=== PATIENT | female | born 1985 | race Caucasian/White ===

== ENCOUNTER 2020-10-19 09:32 | Emergency (ER) | payer SELFPAY ==
[2020-10-19] MEDS ORDERED: NA CHLORIDE 0.9% 1,000 ML ONE (10:20)
[2020-10-19] MEDS ORDERED: ACETAMINOPHEN 500 MG TAB ONE (10:20)
[2020-10-19 10:29] LABS: Absolute Lymphocytes (CBC) 2.3 K/uL (0.7-4.9); Basophils % 0.5 % (0-1.3); Hematocrit 44.3 % (36.0-45.0); Lymphocytes % 15.6 % (15.3-44.8); MPV 8.7 fL (7.6-11.3)
[2020-10-19 10:30] LABS: Protime INR 1.06
[2020-10-19 10:53] LABS: Potassium 3.9 mmol/L (3.5-5.1)
--- NOTE | 2020-10-19 11:13 | RAD REPORT ---
EXAM DESCRIPTION: USExtrem Venous W Compress Bil10/19/2020 10:53 am CLINICAL HISTORY: Leg pain COMPARISON: none FINDINGS: The common femoral, superficial femoral, popliteal and posterior tibial veins bilaterally are compressible and demonstrate augmentation. Doppler demonstrates good flow. IMPRESSION: No evidence of deep venous thrombosis involving either lower extremity.
[2020-10-19 11:30] LABS: Urine Blood 3+ (NEG); Urine Glucose NEGATIVE (NEG); Urine Protein 3+ (NEG); Urine Specific Gravity >1.030 (1.005-1.030); Urine pH 5.5 (5.0-7.0)
--- NOTE | 2020-10-19 11:37 | ER ---
Nurse's Notes [facility] Name: Sherry White Age: 35 yrs Sex: Female : 1985 Arrival Date: 10/19/2020 Time: 09:33 Bed 18 Private MD: Diagnosis: Pain in left leg;Pain in right leg Presentation: 10/19 09:34 Chief complaint: EMS states: pt found aox4 sitting outside with c/o of fatigue and zb weakness. She walked from a friends house this morning and started to feel cramping and fatigue in her legs. Coronavirus screen: congestion, fatigue, muscle pain, runny nose. Ebola Screen: No symptoms or risks identified at this time. Initial Sepsis Screen: Does the patient meet any 2 criteria? No. Patient's initial sepsis screen is negative. Does the patient have a suspected source of infection? No. Patient's initial sepsis screen is negative. Risk Assessment: Do you want to hurt yourself or someone else? Patient reports no desire to harm self or others. Onset of symptoms was October 18, 2020. 09:34 Method Of Arrival: EMS: [facility] zb 09:34 Acuity: ROXY 3 zb Triage Assessment: 09:30 Musculoskeletal: Circulation, motion, and sensation intact. Capillary refill < 3 zb seconds, in bilateral fingers. Range of motion: intact in all extremities. 09:43 General: Appears in no apparent distress. comfortable, Behavior is cooperative, zb anxious, fussy. Pain: Complains of pain in left leg and right leg Pain does not radiate. Pain currently is 1 out of 10 on a pain scale. Quality of pain is described as aching, Pain began 1 day ago. Is continuous, Aggravated by increased activity. EENT: Reports nasal congestion since yesterday. Neuro: Level of Consciousness is awake, alert, obeys commands, Oriented to person, place, time, situation. Cardiovascular: Reports fatigue, Capillary refill < 3 seconds in bilateral fingers Patient's skin is warm and dry. Pulses are all present. Respiratory: Reports cough that is Airway is patent Respiratory effort is even, unlabored, Respiratory pattern is regular, symmetrical. GI: Abdomen is flat, non-distended, Patient currently denies diarrhea, nausea, vomiting. : No signs and/or symptoms were reported regarding the genitourinary system. Derm: Skin is intact, is healthy with good turgor, Skin is pink, warm \T\ dry. normal. 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 - Social history:: Smoking status: Patient reports the use of cigarette tobacco products, smokes one pack cigarettes per day. Screenin:50 Abuse screen: Denies threats or abuse. Denies injuries from another. Nutritional zb screening: No deficits noted. Tuberculosis screening: No symptoms or risk factors identified. Fall Risk None identified. Assessment: 10:15 Reassessment: Patient appears in no apparent distress at this time. Patient and/or zb family updated on plan of care and expected duration. Pain level reassessed. Patient is alert, oriented x 3, equal unlabored respirations, skin warm/dry/pink. pt lying ing bed. 11:15 Reassessment: Patient appears in no apparent distress at this time. Patient and/or zb family updated on plan of care and expected duration. Pain level reassessed. Patient is alert, oriented x 3, equal unlabored respirations, skin warm/dry/pink. pain decreased. fluid completed. ECP discussed DC. 12:00 Reassessment: Patient appears in no apparent distress at this time. Patient and/or zb family updated on plan of care and expected duration. Pain level reassessed. Patient is alert, oriented x 3, equal unlabored respirations, skin warm/dry/pink. pt ambulatory. walked out of ER. gait stable. no c/o of pain. Vital Signs: 09:34 BP 119 / 74; Pulse 93; Resp 16; Temp 99.1(O); Pulse Ox 98% on R/A; Weight 72.57 kg; zb Height 5 ft. 9 in. (175.26 cm); Pain 1/10; 10:49 BP 134 / 89; Pulse 57; Resp 16; Pulse Ox 100% on R/A; zb 11:51 BP 135 / 90; Pulse 60; Resp 18; Pulse Ox 100% on R/A; zb 09:34 Body Mass Index 23.63 (72.57 kg, 175.26 cm) zb ED Course: 09:33 Patient arrived in ED. zb 09:34 Pete Ladd PA is PHCP. cp 09:34 Sathish Allison MD is Attending Physician. cp 09:34 India Veliz RN is Primary Nurse. zb 09:41 Triage completed. zb 09:50 Patient has correct armband on for positive identification. Call light in reach. Side zb rails up X 1. Pulse ox on. NIBP on. Door closed. Noise minimized. Warm blanket given. 09:50 Arm band placed on. zb 10:19 EKG done, by ED staff, reviewed by Pete MARSHALL. jd3 10:53 US Extremity Venous W Compression Brain In Process Unspecified. EDMS 11:49 Urine Culture Sent. sv 12:08 No provider procedures requiring assistance completed. IV discontinued, intact, zb bleeding controlled, No redness/swelling at site. Pressure dressing applied. Administered Medications: 10:30 Drug: NS 0.9% 1000 ml Route: IV; Rate: 1 bolus; Site: right antecubital; zb 11:49 Follow up: Response: No adverse reaction; IV Status: Completed infusion; IV Intake: zb 1000ml 10:30 Drug: Tylenol 1000 mg Route: PO; zb 11:48 Follow up: Response: No adverse reaction; Pain is decreased zb Intake: 11:49 IV: 1000ml; Total: 1000ml. zb Outcome: 11:37 Discharge ordered by MD. cp 12:09 Discharged to home ambulatory. zb 12:09 Condition: stable 12:09 Discharge instructions given to patient, Instructed on discharge instructions, follow up and referral plans. medication usage, Demonstrated understanding of instructions, follow-up care, medications, Prescriptions given X 1. 12:09 Patient left the ED. zb Signatures: Dispatcher [employer] EDSabine Wagner RN RN sv Page, Corey, PA PA cp Davies, Jonathon, RN RN jd3 Brown, Zipporah, RN RN zb
--- NOTE | 2020-10-19 11:37 | EDPHYS ---
Physician Documentation [facility] Name: Sherry White Age: 35 yrs Sex: Female : 1985 Arrival Date: 10/19/2020 Time: 09:33 Bed 18 Private MD: ED Physician Sathish Allison HPI: 10/19 09:40 This 35 yrs old Female presents to ER via EMS with complaints of Bilateral Leg Pain and cp General Weakness. 09:40 The patient presents with pain, that is acute. The complaints affect the right leg and cp left leg. Onset: The symptoms/episode began/occurred today. 09:40 Patient reports pain to bilateral legs that started today while walking from friend's cp home after spending the night. Patient c/o general weakness. 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 - Social history:: Smoking status: Patient reports the use of cigarette tobacco products, smokes one pack cigarettes per day. ROS: 09:50 Constitutional: Negative for body aches, chills, fever, poor PO intake. cp 09:50 Eyes: Negative for injury, pain, redness, and discharge. cp 09:50 ENT: Negative for ear pain, sore throat, difficulty swallowing, difficulty handling secretions. 09:50 Cardiovascular: Negative for chest pain, edema, palpitations. 09:50 Respiratory: Negative for cough, shortness of breath, wheezing. 09:50 Abdomen/GI: Negative for abdominal pain, nausea, vomiting, and diarrhea, black/tarry stool, rectal bleeding. 09:50 Back: Negative for pain at rest, pain with movement. 09:50 : Negative for urinary symptoms. 09:50 Skin: Negative for rash. 09:50 Neuro: Positive for weakness, Negative for altered mental status, dizziness, headache, loss of consciousness, syncope. 09:50 All other systems are negative. Exam: 09:55 Constitutional: The patient appears in no acute distress, alert, awake, cp non-diaphoretic, non-toxic, well developed, well nourished. 09:55 Head/Face: Normocephalic, atraumatic. cp 09:55 Eyes: Periorbital structures: appear normal, Pupils: equal, round, and reactive to light and accomodation, Extraocular movements: intact throughout, Conjunctiva: normal, no exudate, no injection, Sclera: no appreciated abnormality, Lids and lashes: appear normal, bilaterally. 09:55 ENT: External ear(s): are unremarkable, Nose: is normal, Mouth: Lips: moist, Oral mucosa: moist, Posterior pharynx: is normal, airway is patent, no erythema, no exudate. 09:55 Neck: ROM/movement: is normal, is supple, without pain, no range of motions limitations. 09:55 Chest/axilla: Inspection: normal. 09:55 Cardiovascular: Rate: normal, Rhythm: regular, Heart sounds: murmur, not appreciated, Edema: is not appreciated. 09:55 Respiratory: the patient does not display signs of respiratory distress, Respirations: normal, no use of accessory muscles, no retractions, labored breathing, is not present, Breath sounds: are clear throughout, no decreased breath sounds, no stridor, no wheezing. 09:55 Abdomen/GI: Exam negative for discomfort, distension, guarding, Inspection: abdomen appears normal. 09:55 Back: pain, is absent, ROM is normal. 09:55 Musculoskeletal/extremity: Extremities: grossly normal except: noted in the right leg and left leg: pain. 09:55 Neuro: Orientation: to person, place \T\ time. Mentation: is normal, Cerebellar function: is grossly normal, Motor: moves all fours, strength is normal, Sensation: is normal. 10:10 ECG was reviewed by the Attending Physician. cp Vital Signs: 09:34 BP 119 / 74; Pulse 93; Resp 16; Temp 99.1(O); Pulse Ox 98% on R/A; Weight 72.57 kg; zb Height 5 ft. 9 in. (175.26 cm); Pain 1/10; 10:49 BP 134 / 89; Pulse 57; Resp 16; Pulse Ox 100% on R/A; zb 11:51 BP 135 / 90; Pulse 60; Resp 18; Pulse Ox 100% on R/A; zb 09:34 Body Mass Index 23.63 (72.57 kg, 175.26 cm) zb MDM: 09:36 Patient medically screened. 11:35 Data reviewed: vital signs, nurses notes, lab test result(s), EKG, radiologic studies, cp ultrasound, and as a result, I will discharge patient. 11:35 Test interpretation: by ED physician or midlevel provider: ECG. Counseling: I had a cp detailed discussion with the patient and/or guardian regarding: the historical points, exam findings, and any diagnostic results supporting the discharge/admit diagnosis, lab results, radiology results, to return to the emergency department if symptoms worsen or persist or if there are any questions or concerns that arise at home. Response to treatment: the patient's symptoms have mildly improved after treatment. 10/19 09:36 Order name: Basic Metabolic Panel; Complete Time: 11:08 10/19 11:08 Interpretation: Normal except: CL 108; GFR 87. 10/19 09:36 Order name: CBC with Diff; Complete Time: 11:08 10/19 11:09 Interpretation: Normal except: WBC 14.6; HGB 15.1; JESSA% 76.8; NEUT A 11.2. 10/19 09:36 Order name: Magnesium; Complete Time: 11:08 10/19 09:36 Order name: PT-INR; Complete Time: 11:08 10/19 09:36 Order name: CK; Complete Time: 11:08 10/19 11:09 Interpretation: Within normal limits: CPK 148. 10/19 09:36 Order name: Urine Microscopic Only 10/19 09:36 Order name: EKG; Complete Time: 09:37 10/19 09:36 Order name: Cardiac monitoring; Complete Time: 10:17 10/19 09:41 Order name: US Extremity Venous W Compression Brain; Complete Time: 11:34 10/19 11:34 Interpretation: Report reviewed. 10/19 11:06 Order name: Urine Dipstick--Ancillary (enter results); Complete Time: 11:34 10/19 11:34 Interpretation: Normal except: UBLD 3+; UPROT 3+. 10/19 11:06 Order name: Urine --Ancillary (enter results); Complete Time: 11:34 10/19 09:36 Order name: EKG - Nurse/Tech; Complete Time: 10:17 cp 10/19 09:36 Order name: IV Saline Lock; Complete Time: 10:19 cp 10/19 09:36 Order name: Labs collected and sent; Complete Time: 10:19 cp 10/19 09:36 Order name: O2 Per Protocol; Complete Time: 10:17 cp 10/19 09:36 Order name: O2 Sat Monitoring; Complete Time: 10:17 cp 10/19 09:36 Order name: Urine Dipstick-Ancillary (obtain specimen); Complete Time: 11:27 cp EC:10 Rate is 69 beats/min. Rhythm is regular. PA interval is normal. QRS interval is normal. cp QT interval is normal. T waves are Inverted in lead aVR. Interpreted by me. Reviewed by me. Administered Medications: 10:30 Drug: NS 0.9% 1000 ml Route: IV; Rate: 1 bolus; Site: right antecubital; zb 11:49 Follow up: Response: No adverse reaction; IV Status: Completed infusion; IV Intake: zb 1000ml 10:30 Drug: Tylenol 1000 mg Route: PO; zb 11:48 Follow up: Response: No adverse reaction; Pain is decreased zb Disposition: 10/20 06:26 Co-signature as Attending Physician, Sathish Allison MD I agree with the assessment and kdr plan of care. Disposition: 10/19/20 11:37 Discharged to Home. Impression: Pain in left leg, Pain in right leg. - Condition is Stable. - Discharge Instructions: Musculoskeletal Pain. - Prescriptions for Ibuprofen 800 mg Oral Tablet - take 1 tablet by ORAL route every 8 hours As needed take with food; 30 tablet. - Medication Reconciliation Form, Thank You Letter, Antibiotic Education, Prescription Opioid Use form. - Follow up: Private Physician; When: 2 - 3 days; Reason: Worsening of condition. - Problem is new. - Symptoms have improved. Signatures: Dispatcher [employer] EDMS Sathish Allison MD MD kdr Page, Corey, PA PA cp Brown, Zipporah, RN RN zb Corrections: (The following items were deleted from the chart) 10/19 11:09 11:09 Normal except: WBC 14.6; HGB 15.1. cp cp 12: 11:37 10/19/2020 11:37 Discharged to Home. Impression: Pain in left leg; Pain in right zb leg. Condition is Stable. Forms are Medication Reconciliation Form, Thank You Letter, Antibiotic Education, Prescription Opioid Use. Follow up: Private Physician; When: 2 - 3 days; Reason: Worsening of condition. Problem is new. Symptoms have improved. cp
[2020-10-19 11:39] LABS: Urine Bacteria 20-50 /HPF (<20); Urine RBC LOADED /HPF (NONE SEEN)
[2020-10-20 07:38] VITALS: TEMP 99.1
[2020-10-20 07:40] VITALS: O2SAT 100
[2020-10-20 07:41] VITALS: BP 135/90
== END 2020-10-19 12:09 | disposition home or self-care (01) ==
LOC: ER 09:32
DX: M79.605 Pain in left leg (principal); M79.604 Pain in right leg; F17.210 Nicotine dependence, cigarettes, uncomplicated; Z88.5 Allergy status to narcotic agent
CPT/HCPCS: 36415; 80048; 81003; 81015; 81025; 82550; 83735; 85025; 85610; 93005; 93970; 96360; 99284; J7030

== ENCOUNTER 2020-10-19 14:42 | Emergency (ER) | payer SELFPAY ==
--- NOTE | 2020-10-19 17:50 | RAD REPORT ---
EXAM DESCRIPTION: CT - Head Brain Wo Cont - 10/19/2020 5:20 pm CLINICAL HISTORY: DIZZINESS, syncope COMPARISON: No comparisons TECHNIQUE: Axial 5 mm thick images of the head were obtained without IV contrast. All CT scans are performed using dose optimization technique as appropriate and may include automated exposure control or mA/KV adjustment according to patient size. FINDINGS: No intracranial hemorrhage, mass, edema or shift of mid-line structures. No acute infarcti on changes seen. No abnormal extra-axial fluid collections. Ventricles are normal. physiologic calcif ications are present. Mastoid air cells and visualized portions of the paranasal sinuses are clear. No acute bony findings. IMPRESSION: Negative non-contrast CT head examination.
--- NOTE | 2020-10-19 17:53 | EDPHYS ---
Physician Documentation [facility] Name: Sherry White Age: 35 yrs Sex: Female : 1985 Arrival Date: 10/19/2020 Time: 14:44 Bed 23 Private MD: ED Physician Sathish Allison HPI: 10/19 15:28 This 35 yrs old Female presents to ER via Ambulatory with complaints of kb Weakness. 15:57 The patient has experienced near-syncope, felt faint. Onset: The symptoms/episode kb began/occurred just prior to arrival. Duration: The patient has had multiple episodes. Context: occurred outdoors, occurred while the patient was walking, Just prior to the episode the patient experienced no apparent symptoms. Associated injury: The patient did not suffer any apparent associated injury. Associated signs and symptoms: Pertinent positives: lightheadedness. Current symptoms: Currently, the patient is not experiencing any symptoms. The patient has not experienced similar symptoms in the past. The patient has been recently seen at the [facility] Emergency Department, today, for similar complaints labs were performed, an ultrasound was performed. Pt states she came in this morning because she was walking and felt faint, like she was going to pass out. States they did tests on her and said everything was ok so she was able to leave. States she had to come back because she got that faint feeling again.. 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 - Social history:: Smoking status: Patient reports the use of cigarette tobacco products, smokes one pack cigarettes per day. ROS: 15:57 Constitutional: Negative for fever, chills, and weight loss, Cardiovascular: Negative kb for chest pain, palpitations, and edema, Respiratory: Negative for shortness of breath, cough, wheezing, and pleuritic chest pain, Abdomen/GI: Negative for abdominal pain, nausea, vomiting, diarrhea, and constipation, Back: Negative for injury and pain, MS/Extremity: Negative for injury and deformity, Skin: Negative for injury, rash, and discoloration. 15:57 Neuro: Positive for near syncope. Exam: 15:56 Constitutional: This is a well developed, well nourished patient who is awake, alert, kb and in no acute distress. Head/Face: Normocephalic, atraumatic. Eyes: Pupils equal round and reactive to light, extra-ocular motions intact. Lids and lashes normal. Conjunctiva and sclera are non-icteric and not injected. Cornea within normal limits. Periorbital areas with no swelling, redness, or edema. Chest/axilla: Normal chest wall appearance and motion. Nontender with no deformity. No lesions are appreciated. Cardiovascular: Regular rate and rhythm with a normal S1 and S2. No gallops, murmurs, or rubs. Normal PMI, no JVD. No pulse deficits. Respiratory: Lungs have equal breath sounds bilaterally, clear to auscultation and percussion. No rales, rhonchi or wheezes noted. No increased work of breathing, no retractions or nasal flaring. Abdomen/GI: Soft, non-tender, with normal bowel sounds. No distension or tympany. No guarding or rebound. No evidence of tenderness throughout. Skin: Warm, dry with normal turgor. Normal color with no rashes, no lesions, and no evidence of cellulitis. MS/ Extremity: Pulses equal, no cyanosis. Neurovascular intact. Full, normal range of motion. Neuro: Awake and alert, GCS 15, oriented to person, place, time, and situation. Cranial nerves II-XII grossly intact. Motor strength 5/5 in all extremities. Sensory grossly intact. Cerebellar exam normal. Normal gait. Vital Signs: 14:52 BP 122 / 82; Pulse 76; Resp 16; Temp 97.6; Pulse Ox 98% ; Weight 73.94 kg; Height 5 ft. iw 9 in. (175.26 cm); 17:03 BP 111 / 50 Supine; Pulse 61; iw 17:06 BP 110 / 75 Sitting; Pulse 67; iw 17:07 BP 113 / 78 Standing; Pulse 68; iw 14:52 Body Mass Index 24.07 (73.94 kg, 175.26 cm) iw MDM: 15:28 Patient medically screened. kb 15:29 Data reviewed: vital signs, nurses notes. Data interpreted: Pulse oximetry: on room air kb is 98 %. Interpretation: normal. 17:39 Data reviewed: old medical records, labs from this morning's visit reviewed. kb Counseling: I had a detailed discussion with the patient and/or guardian regarding: the historical points, exam findings, and any diagnostic results supporting the discharge/admit diagnosis, lab results, radiology results, the need for outpatient follow up, a family practitioner. 10/19 17:12 Order name: Glucose, Ancillary Testing; Complete Time: 17:16 EDMS 10/19 17:10 Order name: CT Head Brain wo Cont; Complete Time: 17:52 kb 10/19 16:18 Order name: Blood Glucose Level; Complete Time: 17:00 kb 10/19 16:19 Order name: Orthostatics; Complete Time: 17:07 kb Administered Medications: No medications were administered Point of Care Testing: Blood Glucose: 17:00 Blood Glucose: 88 mg/dL; iw Ranges: Critical Glucose Levels:Adult <50 mg/dl or >400 mg/dl <40 mg/dl or >180 mg/dl Disposition: 10/20 06:32 Co-signature as Attending Physician, Sathish Allison MD I agree with the assessment and kdr plan of care. Disposition: 10/19/20 17:52 Discharged to Home. Impression: Dizziness and giddiness. - Condition is Stable. - Discharge Instructions: Near-Syncope, [id number], Dizziness, [id number]. - Medication Reconciliation Form, Thank You Letter, Antibiotic Education, Prescription Opioid Use form. - Follow up: Emergency Department; When: As needed; Reason: Worsening of condition. Follow up: Private Physician; When: 2 - 3 days; Reason: Recheck today's complaints, Continuance of care, Re-evaluation by your physician. Signatures: Dispatcher [employer] EDNH Sherry York, PRINTING SIGN MACHINE OPERATOR-C LUIS CARLOS-Sathish Beasley MD MD kdr Siena Devi RN RN iw Corrections: (The following items were deleted from the chart) 10/19 17:59 17:52 10/19/2020 17:52 Discharged to Home. Impression: Dizziness and giddiness. iw Condition is Stable. Forms are Medication Reconciliation Form, Thank You Letter, Antibiotic Education, Prescription Opioid Use. Follow up: Emergency Department; When: As needed; Reason: Worsening of condition. Follow up: Private Physician; When: 2 - 3 days; Reason: Recheck today's complaints, Continuance of care, Re-evaluation by your physician. kb
--- NOTE | 2020-10-19 17:53 | ER ---
Nurse's Notes [facility] Name: Sherry White Age: 35 yrs Sex: Female : 1985 Arrival Date: 10/19/2020 Time: 14:44 Bed 23 Private MD: Diagnosis: Dizziness and giddiness Presentation: 10/19 14:52 Chief complaint: Patient states: almost passed out today. was seen in ER and discharged iw home, started to feel dizzy and a little faint and came back. Coronavirus screen: At this time, the client does not indicate any symptoms associated with coronavirus-19. Ebola Screen: Patient negative for fever greater than or equal to 101.5 degrees Fahrenheit, and additional compatible Ebola Virus Disease symptoms Patient denies exposure to infectious person. Patient denies travel to an Ebola-affected area in the 21 days before illness onset. No symptoms or risks identified at this time. Initial Sepsis Screen: Does the patient meet any 2 criteria? No. Patient's initial sepsis screen is negative. Does the patient have a suspected source of infection? No. Patient's initial sepsis screen is negative. Risk Assessment: Do you want to hurt yourself or someone else? Patient reports no desire to harm self or others. Onset of symptoms was October 19, 2020. 14:52 Method Of Arrival: Ambulatory iw 14:52 Acuity: ROXY 3 iw Triage Assessment: 17:59 General: Behavior is calm. 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 - Social history:: Smoking status: Patient reports the use of cigarette tobacco products, smokes one pack cigarettes per day. Screenin:06 Abuse screen: Denies threats or abuse. Denies injuries from another. Nutritional iw screening: No deficits noted. Tuberculosis screening: No symptoms or risk factors identified. Fall Risk None identified. Assessment: 15:00 Reassessment: pt told registration that she was going to go outside for a minute. iw 15:38 Reassessment: Patient appears in no apparent distress at this time. Patient is alert, iw oriented x 3, equal unlabored respirations, skin warm/dry/pink. pt back in lobby. 16:00 General: Appears in no apparent distress. Pain: Denies pain. Neuro: Level of iw Consciousness is awake, alert, obeys commands, Oriented to person, place, time, situation. 17:00 Reassessment: Patient appears in no apparent distress at this time. Patient and/or iw family updated on plan of care and expected duration. Pain level reassessed. Patient is alert, oriented x 3, equal unlabored respirations, skin warm/dry/pink. 17:59 Reassessment: Patient appears in no apparent distress at this time. Patient and/or iw family updated on plan of care and expected duration. Pain level reassessed. Patient is alert, oriented x 3, equal unlabored respirations, skin warm/dry/pink. Patient states feeling better. Patient states symptoms have improved. Vital Signs: 14:52 BP 122 / 82; Pulse 76; Resp 16; Temp 97.6; Pulse Ox 98% ; Weight 73.94 kg; Height 5 ft. iw 9 in. (175.26 cm); 17:03 BP 111 / 50 Supine; Pulse 61; iw 17:06 BP 110 / 75 Sitting; Pulse 67; iw 17:07 BP 113 / 78 Standing; Pulse 68; iw 14:52 Body Mass Index 24.07 (73.94 kg, 175.26 cm) iw ED Course: 14:44 Patient arrived in ED. rg4 14:53 Triage completed. iw 15:28 Sher[facility] York FNP-C [facility]. kb 15:28 Sathish Allison MD is Attending Physician. kb 15:40 Arm band placed on. iw 17:02 Siena Devi, ESTEPHANIE is Primary Nurse. iw 17:06 Patient has correct armband on for positive identification. iw 17:20 CT Head Brain wo Cont In Process Unspecified. EDMS 17:22 Patient moved back from CT. sv 17:59 No provider procedures requiring assistance completed. Patient did not have IV access iw during this emergency room visit. Administered Medications: No medications were administered Point of Care Testing: Blood Glucose: 17:00 Blood Glucose: 88 mg/dL; iw Ranges: Outcome: 17:52 Discharge ordered by . kb 17:59 Discharged to home ambulatory. iw 17:59 Condition: good 17:59 Discharge instructions given to patient, Instructed on discharge instructions, follow up and referral plans. Demonstrated understanding of instructions, follow-up care. 17:59 Patient left the ED. iw Signatures: Dispatcher [employer] EDSherry El, JOURNEYMAN SHEET METAL WORKER-C JOURNEYMAN SHEET METAL WORKER-Sabine Mena, RN Siena Oliver RN RN iw Garcia, Rubi rg4 Corrections: (The following items were deleted from the chart) 14:54 14:52 Resp 16bpm; Temp 97.6F; 73.94 kg; Height 5 ft. 9 in.; BMI: 24.0; iw iw
[2020-10-20 10:22] VITALS: TEMP 97.6; O2SAT 98
[2020-10-20 10:25] VITALS: BP 113/78
== END 2020-10-19 17:59 | disposition home or self-care (01) ==
LOC: ER 14:42
DX: R42 Dizziness and giddiness (principal); F17.210 Nicotine dependence, cigarettes, uncomplicated; Z88.5 Allergy status to narcotic agent
CPT/HCPCS: 70450; 82947; 99284

== ENCOUNTER 2021-03-15 20:29 | Inpatient (IN) | payer SELFPAY ==
[2021-03-15] MEDS ORDERED: LORazepam 2 MG/ML VIAL ONE (21:02)
[2021-03-15] MEDS ORDERED: ZIPRASIDONE MESYLA 20 MG/VIAL IM ONE (21:03)
[2021-03-15] MEDS ORDERED: WATER FOR INJ,STERILE 10 ML ONE (21:03)
[2021-03-15 21:25] LABS: Absolute Lymphocytes (CBC) 1.3 K/uL (0.7-4.9); Basophils % 0.2 % (0-1.3); Hematocrit 39.3 % (36.0-45.0); Lymphocytes % 6.3 % (15.3-44.8); MPV 9.4 fL (7.6-11.3); RBC Red Blood Cell Count 4.15 M/uL (3.86-4.86)
[2021-03-15] MEDS ORDERED: NA CHLORIDE 0.9% 2,000 ML ONE (21:31)
[2021-03-15] MEDS ORDERED: THIAMINE 200 MG/2 ML INJ ONE (21:31)
[2021-03-15] MEDS ORDERED: CEFTRIAXONE/SWI 1gm 2 GM/20 ML SYR ONE (21:32)
[2021-03-15 21:39] LABS: Protime INR 1.09
[2021-03-15 21:49] LABS: Platelet Estimate INCR
[2021-03-15 21:50] LABS: Blood Morphology Comment NOT SEEN (NOT SEEN)
[2021-03-15 22:04] LABS: ALT/SGPT 30 U/L (12-78); AST/SGOT 35 U/L (15-37); Albumin 3.9 g/dL (3.4-5.0); Alkaline Phosphatase 68 U/L (45-117); BUN Blood Urea Nitrogen 7 mg/dL (7-18); Bicarbonate 17 mmol/L (21-32); Bilirubin Direct < 0.1 mg/dL (0-0.2); Bilirubin Total 0.4 mg/dL (0.2-1.0); Glucose Level 163 mg/dL (74-106); Lipase 105 U/L (73-393); Magnesium 1.8 mg/dL (1.8-2.4); NT PRO-BNP 61 pg/mL (<125); Potassium 4.2 mmol/L (3.5-5.1); Protein, Total 8.1 g/dL (6.4-8.2); Sodium Level 140 mmol/L (136-145); Troponin (Emerg Dept Use Only) < 0.02 ng/mL (0.0-0.045)
[2021-03-15 22:33] LABS: Urine Blood 1+ (Negative); Urine Glucose Negative (Negative); Urine Protein 3+ (Negative); Urine Specific Gravity >=1.030 (1.005-1.030)
--- NOTE | 2021-03-15 22:38 | EDPHYS ---
Physician Documentation [facility] Name: Sherry White Age: 35 yrs Sex: Female : 1985 Arrival Date: 03/15/2021 Time: 20:30 Bed 28 Private MD: ED Physician Pete Wilhelm HPI: 03/15 20:48 This 35 yrs old Female presents to ER via Unassigned with complaints of ams, mami psychosis. 20:48 The patient presents with agitation, confusion, decreased mental status, trouble mami concentrating. Onset: The symptoms/episode began/occurred just prior to arrival, today. Possible causes: unknown. Associated signs and symptoms: The patient has no apparent associated signs or symptoms. Current symptoms: In the emergency department the patient's symptoms are unchanged from the initial presentation. Patient's baseline: Neuro: alert and fully oriented. It is unknown whether or not the patient has had similar symptoms in the past. 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 - Family history:: not pertinent, unknown. - Social history:: Smoking status: unknown. ROS: 20:48 Eyes: Negative for injury, pain, redness, and discharge, ENT: Negative for injury, mami pain, and discharge, Neck: Negative for injury, pain, and swelling, Cardiovascular: Negative for chest pain, palpitations, and edema, Respiratory: Negative for shortness of breath, cough, wheezing, and pleuritic chest pain, Abdomen/GI: Negative for abdominal pain, nausea, vomiting, diarrhea, and constipation, Back: Negative for injury and pain, : Negative for injury, bleeding, discharge, and swelling, MS/Extremity: Negative for injury and deformity, Skin: Negative for injury, rash, and discoloration, Psych: Negative for depression, anxiety, suicide ideation, homicidal ideation, and hallucinations, Allergy/Immunology: Negative for hives, rash, and allergies, Endocrine: Negative for neck swelling, polydipsia, polyuria, polyphagia, and marked weight changes, Hematologic/Lymphatic: Negative for swollen nodes, abnormal bleeding, and unusual bruising. 20:48 Neuro: Positive for altered mental status. 20:48 Psych: Positive for visual hallucinations. Exam: 20:48 Head/Face: Normocephalic, atraumatic. Eyes: Pupils equal round and reactive to light, mami extra-ocular motions intact. Lids and lashes normal. Conjunctiva and sclera are non-icteric and not injected. Cornea within normal limits. Periorbital areas with no swelling, redness, or edema. ENT: Nares patent. No nasal discharge, no septal abnormalities noted. Tympanic membranes are normal and external auditory canals are clear. Oropharynx with no redness, swelling, or masses, exudates, or evidence of obstruction, uvula midline. Mucous membranes moist. Neck: Trachea midline, no thyromegaly or masses palpated, and no cervical lymphadenopathy. Supple, full range of motion without nuchal rigidity, or vertebral point tenderness. No Meningismus. Chest/axilla: Normal chest wall appearance and motion. Nontender with no deformity. No lesions are appreciated. Respiratory: Lungs have equal breath sounds bilaterally, clear to auscultation and percussion. No rales, rhonchi or wheezes noted. No increased work of breathing, no retractions or nasal flaring. Abdomen/GI: Soft, non-tender, with normal bowel sounds. No distension or tympany. No guarding or rebound. No evidence of tenderness throughout. Back: No spinal tenderness. No costovertebral tenderness. Full range of motion. Skin: Warm, dry with normal turgor. Normal color with no rashes, no lesions, and no evidence of cellulitis. MS/ Extremity: Pulses equal, no cyanosis. Neurovascular intact. Full, normal range of motion. 20:48 Constitutional: The patient appears in obvious distress, mildly distressed. 20:48 Cardiovascular: Rate: tachycardic, actual rate is 160 bpm, Rhythm: regular, Pulses: Pulses are 4+ in bilateral radial, brachial, femoral, popliteal, posterior tibial and and dorsalis pedis arteries.. Heart sounds: normal, Edema: is not appreciated, JVD: is not appreciated. 20:48 Respiratory: the patient does not display signs of respiratory distress, Respirations: normal, Breath sounds: are clear throughout, Respiratory rate: 22 21:45 ECG was reviewed by the Attending Physician. [facility] Vital Signs: 20:30 BP 147 / 81; Pulse 147; Resp 26; Temp 100.0(TE); Pulse Ox 98% on R/A; Weight 90.72 kg jb4 (R); Height 5 ft. 8 in. (172.72 cm); 21:30 BP 94 / 58; Pulse 108; Resp 17 S; Pulse Ox 98% ; 4 22:30 BP 87 / 53; Pulse 104; Resp 17; Pulse Ox 98% on R/A; 4 23:00 BP 92 / 52; Pulse 101; Resp 14; Temp 97.4(TE); Pulse Ox 98% on R/A; [facility] 03/16 00:03 BP 92 / 60; Pulse 93; Resp 20; Pulse Ox 100% on R/A; 03/17 07:00 BP 122 / 93; Pulse 112; Resp 17; Temp 98.3(O); Pulse Ox 98% on R/A; 5 08:00 BP 116 / 58; Pulse 90; Resp 16; Temp 98.1(O); Pulse Ox 98% ; 5 09:00 BP 110 / 74; Pulse 100; Resp 16; Pulse Ox 100% on R/A; 5 16:11 BP 119 / 80; Pulse 92; Resp 16; Temp 98.3(O); Pulse Ox 98% on R/A; 5 03/15 20:30 Body Mass Index 30.41 (90.72 kg, 172.72 cm) [facility] MDM: 03/15 20:37 Patient medically screened. [facility] 20:53 Differential Diagnosis: electrolyte abnormality, alcohol intoxication, hypoglycemia, mami intracranial bleed, meningitis, overdose, pneumonia, sepsis, TIA, UTI, volume depletion. Data reviewed: vital signs, nurses notes, lab test result(s), EKG, radiologic studies, CT scan, plain films. Data interpreted: environmental monitoring specialist: rate is 160 beats/min, rhythm is regular, Pulse oximetry: on room air is 95 %. Test interpretation: by ED physician or midlevel provider: ECG, plain radiologic studies. Counseling: I had a detailed discussion with the patient and/or guardian regarding: the historical points, exam findings, and any diagnostic results supporting the discharge/admit diagnosis, lab results, radiology results. 03/15 20:41 Order name: Basic Metabolic Panel [facility] 03/15 20:41 Order name: CBC with Diff [facility] 03/15 20:41 Order name: LFT's [facility] 03/15 20:41 Order name: Magnesium [facility] 03/15 20:41 Order name: NT PRO-BNP [facility] 03/15 20:41 Order name: PT-INR [facility] 03/15 20:41 Order name: Troponin (emerg Dept Use Only) [facility] 03/15 20:41 Order name: Lipase [facility] 03/15 20:41 Order name: Acetaminophen [facility] 03/15 20:41 Order name: ETOH Level [facility] 03/15 20:41 Order name: Ptt, Activated [facility] 03/15 20:41 Order name: Salicylate [facility] 03/15 20:41 Order name: Urine Drug Screen [facility] 03/15 20:41 Order name: Flu [facility] 03/15 20:41 Order name: COVID-19 : Document "Date of Symptom Onset" if Symptomatic. [facility] 03/15 20:41 Order name: Blood Culture Adult (2) [facility] 03/15 20:41 Order name: Lactate [facility] 03/15 21:20 Order name: CORONAVIRUS [facility] 03/15 21:20 Order name: Influenza Screen (A [facility] 03/15 21:40 Order name: Protime (+INR); Complete Time: 22:29 [facility] 03/15 21:40 Order name: PTT, Activated Partial Thromb; Complete Time: 22:29 [facility] 03/15 21:45 Order name: Salicylates Level; Complete Time: 22:29 [facility] 03/15 21:50 Order name: CBC with Automated Diff; Complete Time: 22:29 [facility] 03/15 21:50 Order name: Manual Differential; Complete Time: 22:29 [facility] 03/15 22:06 Order name: Basic Metabolic Panel; Complete Time: 22:29 [facility] 03/15 22:06 Order name: Liver (Hepatic) Function; Complete Time: 22:29 [facility] 03/15 22:06 Order name: Troponin (Emerg Dept Use Only); Complete Time: 22:29 [facility] 03/15 22:06 Order name: NT PRO-BNP; Complete Time: 22:29 [facility] 03/15 22:06 Order name: Acetaminophen Level; Complete Time: 22:29 [facility] 03/15 22:06 Order name: Magnesium; Complete Time: 22:29 [facility] 03/15 22:06 Order name: Lipase; Complete Time: 22:29 [facility] 03/15 22:06 Order name: Alcohol Serum/Plasma; Complete Time: 22:29 [facility] 03/15 22:34 Order name: Urine Dipstick-Ancillary; Complete Time: 22:38 [facility] 03/15 22:34 Order name: Urine Microscopic Only ds4 03/15 22:35 Order name: Urine --Ancillary (enter results) ds4 03/15 23:00 Order name: Lactate; Complete Time: 00:40 [facility] 03/15 23:02 Order name: Urine Drug Screen; Complete Time: 00:40 [facility] 03/15 23:48 Order name: Urine --Ancillary; Complete Time: 00:40 [facility] 03/15 23:57 Order name: COVID-19/FLU A+B; Complete Time: 00:40 [facility] 03/16 01:32 Order name: Urine Microscopic Only; Complete Time: 14:06 [facility] 03/16 03:14 Order name: Lactate Sepsis 2 HR Follow-up; Complete Time: 14:06 [facility] 03/16 05:40 Order name: CBC with Automated Diff; Complete Time: 14:06 [facility] 03/16 05:59 Order name: Hemoglobin A1c; Complete Time: 14:06 [facility] 03/16 06:48 Order name: Comprehensive Metabolic Panel; Complete Time: 14:06 [facility] 03/16 06:48 Order name: Phosphorus; Complete Time: 14:06 [facility] 03/16 06:48 Order name: Creatine Phosphokinase; Complete Time: 14:06 [facility] 03/16 06:48 Order name: T4 Free; Complete Time: 14:06 [facility] 03/16 06:48 Order name: Magnesium; Complete Time: 14:06 [facility] 03/16 06:48 Order name: Thyroid Stimulating Hormone; Complete Time: 14:06 [facility] 03/16 10:11 Order name: Glucose, Ancillary Testing; Complete Time: 14:06 [facility] 03/16 12:08 Order name: Glucose, Ancillary Testing; Complete Time: 14:06 ED[facility] 03/16 17:31 Order name: Glucose, Ancillary Testing [facility] 03/16 22:28 Order name: Blood Culture [facility] 03/17 07:16 Order name: Urine Culture [facility] 03/17 07:21 Order name: CBC with Automated Diff [facility] 03/17 07:29 Order name: Comprehensive Metabolic Panel [facility] 03/17 07:29 Order name: Phosphorus [facility] 03/17 07:29 Order name: Magnesium [facility] 03/17 11:39 Order name: Gram Stain--Aerobic Bottle [facility] 03/17 11:40 Order name: Glucose, Ancillary Testing [facility] 03/17 16:17 Order name: Glucose, Ancillary Testing [facility] 03/17 17:39 Order name: Vancomycin Level Trough [facility] 03/15 20:41 Order name: XRAY Chest (1 view) [facility] 03/15 20:41 Order name: EKG; Complete Time: 20:43 [facility] 03/15 20:41 Order name: Cardiac monitoring; Complete Time: 22:36 [facility] 03/15 20:41 Order name: EKG - Nurse/Tech; Complete Time: 22:36 [facility] 03/15 20:41 Order name: IV Saline Lock; Complete Time: 20:48 [facility] 03/15 20:41 Order name: Labs collected and sent; Complete Time: 20:48 [facility] 03/15 20:41 Order name: O2 Per Protocol; Complete Time: 20:48 [facility] 03/15 20:41 Order name: O2 Sat Monitoring; Complete Time: 20:49 [facility] 03/15 20:41 Order name: Urine Test (obtain specimen); Complete Time: 22:35 [facility] 03/15 20:41 Order name: Urine Dipstick-Ancillary (obtain specimen); Complete Time: 22:36 [facility] 03/15 20:41 Order name: Leyva; Complete Time: 22:30 [facility] 03/15 20:48 Order name: CT Head Brain wo Cont [facility] 03/15 22:38 Order name: Restraint:Non-Violent; Complete Time: 23:14 [facility] 03/16 07:38 Order name: Diet Regular; Complete Time: 07:38 [facility] 03/16 07:51 Order name: RAD; Complete Time: 14:06 [facility] 03/16 11:24 Order name: CT [facility] 03/17 20:36 Order name: Glucose, Ancillary Testing [facility] 03/18 06:37 Order name: Basic Metabolic Panel [facility] EC:45 Rate is 110 beats/min. QRS [place] is Normal. WI interval is normal. QRS interval is mami normal. QT interval is normal. No Q waves. T waves are Normal. No ST changes noted. Clinical impression: Sinus tachycardia and No evidence of ischemia. Interpreted by me. Reviewed by me. Administered Medications: 20:50 Drug: Ativan (LORazepam) 2 mg Route: IVP; Site: right antecubital; jb4 23:26 Follow up: Response: No adverse reaction 20:50 Drug: Geodon (ziprasidone) 20 mg Route: IM; Site: right deltoid; jb4 23:26 Follow up: Response: No adverse reaction 03/16 00:42 Drug: NS 0.9% 1000 ml Route: IV; Rate: 1 bolus; Site: left antecubital; 02:31 Follow up: Response: No adverse reaction; IV Status: Completed infusion 00:45 Drug: Rocephin (cefTRIAXone) 2 grams Route: IV; Rate: per protocol; Site: right antecubital; 02:31 Follow up: Response: No adverse reaction; IV Status: Completed infusion 00:47 Drug: NS 0.9% 1000 ml Route: IV; Rate: 1 bolus; Site: right antecubital; 02:29 Follow up: Response: No adverse reaction; IV Status: Completed infusion 00:49 Drug: Thiamine 100 mg Route: IV; Rate: bolus; Site: right antecubital; 02:31 Follow up: Response: No adverse reaction; IV Status: Completed infusion 00:49 Drug: NS 0.9% 1000 ml Route: IV; Rate: 1 bolus; Site: left antecubital; 02:30 Follow up: Response: No adverse reaction; IV Status: Completed infusion 00:49 Drug: Zithromax (azithromycin) 500 mg Route: IVPB; Infused Over: 1 hrs; Site: left antecubital; 02:29 Follow up: Response: No adverse reaction; IV Status: Completed infusion 00:50 Not Given (Physician Discretion): NS 0.9% 1000 ml IV at 125 ml/hr continuous 02:00 Drug: D5-1/2 NS with KCl 20 mEq/L 1000 ml Route: IV; Rate: 125 ml/hr; Site: right antecubital; Disposition: 03/15/21 22:38 Hospitalization ordered by Yvette Cohen for Inpatient Admission. Preliminary diagnosis are Altered mental status, unspecified - psychosis, Elevated white blood cell count, Tachycardia, unspecified, Adverse effect of amphetamines, Abuse of non-psychoactive substances - meth. - Bed requested for [facility] ER HOLD. - Status is Inpatient Admission. jl7 - Condition is Fair. - Problem is new. - Symptoms have improved. Signatures: Dispatcher [employer] EDPete Gold MD MD cha Mickail, Joel, PA PA jmm Garcia, Cindy, ESTEPHANIE HUMMEL Brain Mittal, RN RN jb4 Karime Pan RN RN jl7 Laura Kruger RN RN Corrections: (The following items were deleted from the chart) 03/15 22:55 22:38 Hospitalization Ordered by Yvette Cohen MD for Inpatient Admission. Preliminary cg diagnosis is Altered mental status, unspecified - psychosis; Elevated white blood cell count; Tachycardia, unspecified. Bed requested for Intensive Care Unit. Status is Inpatient Admission. Condition is Fair. Problem is new. Symptoms have improved. [facility] 23:43 22:55 03/15/2021 22:38 Hospitalization Ordered by Yvette Cohen MD for Inpatient cg Admission. Preliminary diagnosis is Altered mental status, unspecified - psychosis; Elevated white blood cell count; Tachycardia, unspecified. Bed requested for [facility] ER HOLD. Status is Inpatient Admission. Condition is Fair. Problem is new. Symptoms have improved. 23:44 23:43 03/15/2021 22:38 Hospitalization Ordered by Yvette Cohen MD for Inpatient cg Admission. Preliminary diagnosis is Altered mental status, unspecified - psychosis; Elevated white blood cell count; Tachycardia, unspecified. Bed requested for [facility] ER HOLD. Status is Inpatient Admission. Condition is Fair. Problem is new. Symptoms have improved. 03/16 00:41 03/15 23:44 03/15/2021 22:38 Hospitalization Ordered by Yvette Cohen MD for Inpatient [facility] Admission. Preliminary diagnosis is Altered mental status, unspecified - psychosis; Elevated white blood cell count; Tachycardia, unspecified. Bed requested for [facility] ER HOLD. Status is Inpatient Admission. Condition is Fair. Problem is new. Symptoms have improved. 03/18 11:27 03/16 00:41 03/15/2021 22:38 Hospitalization Ordered by Yvette Cohen MD for Inpatient jl7 Admission. Preliminary diagnosis is Altered mental status, unspecified - psychosis; Elevated white blood cell count; Tachycardia, unspecified; Adverse effect of amphetamines; Abuse of non-psychoactive substances - meth. Bed requested for [facility] ER HOLD. Status is Inpatient Admission. Condition is Fair. Problem is new. Symptoms have improved. mami
--- NOTE | 2021-03-15 22:38 | ER ---
Nurse's Notes [facility] Name: Sherry White Age: 35 yrs Sex: Female : 1985 Arrival Date: 03/15/2021 Time: 20:30 Bed 28 Private MD: Diagnosis: Altered mental status, unspecified-psychosis;Elevated white blood cell count;Tachycardia, unspecified;Adverse effect of amphetamines;Abuse of non-psychoactive substances-meth Presentation: 03/15 20:30 Chief complaint: EMS states: Pt was picked up from her apartment by the police, while jb4 in shelter she was extremely paranoid. Her pupils were extremely dilated. Her heart rate was noted at 160 with a blood pressure of 200/120. She has remain agitated and paranoid while with us and it worsened on the way to the ED. Her pupils remain dilated but not as bad. 20:30 Coronavirus screen: Client denies travel out of the [place] in the last 14 days. At this jb4 time, the client does not indicate any symptoms associated with coronavirus-19. Ebola Screen: No symptoms or risks identified at this time. Initial Sepsis Screen: Does the patient meet any 2 criteria? RR > 20 per min. No. Patient's initial sepsis screen is negative. Does the patient have a suspected source of infection? No. Patient's initial sepsis screen is negative. Risk Assessment: Do you want to hurt yourself or someone else? Unable to obtain. Onset of symptoms was March 15, 2021. Transition of care: patient was not received from another setting of care. 20:30 Method Of Arrival: EMS: [facility] jb4 20:30 Acuity: ROXY 2 jb4 STRIKER OUT: 03/16 00:03 LMP N/A - Unknown wh Historical: - Allergies: 03/15 20:38 Codeine; jb4 20:38 Vicodin; jb4 - Home Meds: 20:38 Cymbalta oral oral [Active]; jb4 - PMHx: 20:38 Anxiety; low blood pressure; Depression; jb4 - PSHx: 20:38 None; jb4 - Immunization history:: Adult Immunizations unknown. - Family history:: not pertinent, unknown. - Social history:: Smoking status: unknown. Screenin:30 Abuse screen: Denies threats or abuse. Nutritional screening: No deficits noted. jb4 Tuberculosis screening: No symptoms or risk factors identified. Fall Risk IV access (20 points). Mental Status- Overestimates/Forgets Limitations (15 pts.). Total Matias Fall Scale indicates Low Risk Score (25-44 pts). Fall prevention measures have been instituted. Side Rails Up X 2 Placed close to Nursing Station 1:1 attendant Assigned to Pt. Frequent Obs/Assesments occuring As available Patient and Family Educated on Fall Prevention Program and strategies. Assessment: 20:30 General: Appears distressed, ill, Behavior is fussy, restless, uncooperative, jb4 hallucinating . Pain: Denies pain. Neuro: Level of Consciousness is awake, alert, Oriented to none. Cardiovascular: Patient's skin is warm and dry. Respiratory: Airway is patent Respiratory effort is even, unlabored, Respiratory pattern is symmetrical, tachypnea. GI: No signs and/or symptoms were reported involving the gastrointestinal system. : EENT: No signs and/or symptoms were reported regarding the EENT system. Derm: Skin is intact, Skin is clammy, Skin is normal, Skin temperature is warm. Musculoskeletal: Circulation, motion, and sensation intact. Range of motion: intact in all extremities. 21:30 Reassessment: Patient appears in no apparent distress at this time. Patient and/or jb4 family updated on plan of care and expected duration. Pain level reassessed. Pt remains awake, lethargic, after geodon an ativan administration. Is no longer restless, continues to have hallucinations. Respirations remain even and unlabored. 22:30 Reassessment: Pt is resting in bed with eyes closed, respirations are even and jb4 unlabored, pt remains restrained. No s/s of pain or distress noted. 22:47 Reassessment: Leg restraints removed. jb4 23:30 Reassessment: Patient appears in no apparent distress at this time. Patient and/or jb4 family updated on plan of care and expected duration. Pain level reassessed. Pt is resting in bed with eyes closed, respirations are even and unlabored, pt remains restrained. No s/s of pain or distress noted. Report given to ESTEPHANIE Sanchez. 23:45 Reassessment: Patient appears in no apparent distress at this time. Patient and/or wh family updated on plan of care and expected duration. Pain level reassessed. Report received from Lanre HUMMEL. Vital Signs: 20:30 BP 147 / 81; Pulse 147; Resp 26; Temp 100.0(TE); Pulse Ox 98% on R/A; Weight 90.72 kg jb4 (R); Height 5 ft. 8 in. (172.72 cm); 21:30 BP 94 / 58; Pulse 108; Resp 17 S; Pulse Ox 98% ; jb4 22:30 BP 87 / 53; Pulse 104; Resp 17; Pulse Ox 98% on R/A; jb4 23:00 BP 92 / 52; Pulse 101; Resp 14; Temp 97.4(TE); Pulse Ox 98% on R/A; [facility] 03/16 00:03 BP 92 / 60; Pulse 93; Resp 20; Pulse Ox 100% on R/A; 03/17 07:00 BP 122 / 93; Pulse 112; Resp 17; Temp 98.3(O); Pulse Ox 98% on R/A; 5 08:00 BP 116 / 58; Pulse 90; Resp 16; Temp 98.1(O); Pulse Ox 98% ; 5 09:00 BP 110 / 74; Pulse 100; Resp 16; Pulse Ox 100% on R/A; 5 16:11 BP 119 / 80; Pulse 92; Resp 16; Temp 98.3(O); Pulse Ox 98% on R/A; 5 03/15 20:30 Body Mass Index 30.41 (90.72 kg, 172.72 cm) [facility] ED Course: 03/15 20:30 Patient arrived in ED. bp1 20:30 Safety Checks: Personal items have been removed. The door is open or patient has been jb4 placed in a hallway bed/chair. There are no family/friend visitors at this time Sitter present at this time. 20:30 Arm band placed on right wrist. jb4 20:30 Patient has correct armband on for positive identification. Placed in gown. Bed in low jb4 position. Call light in reach. Side rails up X 1. 20:36 Inserted saline lock: 20 gauge in right antecubital area, using aseptic technique. ds4 Blood collected. 20:37 Pete Wilhelm MD is Attending Physician. [facility] 20:37 Brain Mittal, ESTEPHANIE is Primary Nurse. jb4 21:03 Triage completed. jb4 21:54 Notified ED physician of a critical lab result(s). WBCs of 21.1. Dr Wilhelm notified. bb 22:15 Leyva cath inserted, using sterile technique, 18 Fr., by de, balloon inflated, to ds4 gravity drainage, urine specimen collected. 22:20 Inserted saline lock: 24 gauge in left antecubital area, using aseptic technique. Blood ds4 collected. 22:33 Yvette Cohen MD is Hospitalizing Provider. [facility] 23:30 Report given to ESTEPHANIE Sanchez. jb4 23:38 No provider procedures requiring assistance completed. IV discontinued, intact, jb4 bleeding controlled, No redness/swelling at site. Pressure dressing applied. 03/17 13:33 Primary Nurse role handed off by Brain Mittal, ESTEPHANIE ll1 03/18 10:15 Karime Pan, ESTEPHANIE is Primary Nurse. jl7 Restraints: 03/15 20:30 Non-Violent Restraint: Order obtained. Initiated on March 15, 2021 at 20:30 jb4 Actions/Behavior observed: Confused/disoriented, has difficulty remembering/follow instructions, has impaired decision making, repeated attempts to get up from bed/chair w/o assistance, unable to follow instructions, Clinical justification for use: line protection, patient safety. 22:30 Non-Violent Restraint: Actions/Behavior observed: has decreased level of consciousness, jb4 unable to follow instructions, Clinical justification for use: line protection, patient safety, Mental status: patient asleep, Circulation: Within defined parameters (based on Cardiovascular assessment) Skin integrity: Within defined parameters (based on Integumentary assessment) Elimination/Hygiene: with urinary catheter. Administered Medications: 20:50 Drug: Ativan (LORazepam) 2 mg Route: IVP; Site: right antecubital; jb4 23:26 Follow up: Response: No adverse reaction 20:50 Drug: Geodon (ziprasidone) 20 mg Route: IM; Site: right deltoid; jb4 23:26 Follow up: Response: No adverse reaction 03/16 00:42 Drug: NS 0.9% 1000 ml Route: IV; Rate: 1 bolus; Site: left antecubital; 02:31 Follow up: Response: No adverse reaction; IV Status: Completed infusion 00:45 Drug: Rocephin (cefTRIAXone) 2 grams Route: IV; Rate: per protocol; Site: right antecubital; 02:31 Follow up: Response: No adverse reaction; IV Status: Completed infusion 00:47 Drug: NS 0.9% 1000 ml Route: IV; Rate: 1 bolus; Site: right antecubital; 02:29 Follow up: Response: No adverse reaction; IV Status: Completed infusion 00:49 Drug: Thiamine 100 mg Route: IV; Rate: bolus; Site: right antecubital; 02:31 Follow up: Response: No adverse reaction; IV Status: Completed infusion 00:49 Drug: NS 0.9% 1000 ml Route: IV; Rate: 1 bolus; Site: left antecubital; 02:30 Follow up: Response: No adverse reaction; IV Status: Completed infusion 00:49 Drug: Zithromax (azithromycin) 500 mg Route: IVPB; Infused Over: 1 hrs; Site: left antecubital; 02:29 Follow up: Response: No adverse reaction; IV Status: Completed infusion 00:50 Not Given (Physician Discretion): NS 0.9% 1000 ml IV at 125 ml/hr continuous 02:00 Drug: D5-1/2 NS with KCl 20 mEq/L 1000 ml Route: IV; Rate: 125 ml/hr; Site: right antecubital; Outcome: 03/15 22:38 Decision to Hospitalize by Provider. [facility] 23:39 Admitted to ER Hold. Please see [facility] for further documentation. [facility] 23:39 Condition: improved 03/18 11:27 Patient left the ED. jl7 Signatures: Pete Wilhelm MD MD cha Ballard, Brenda RN Michael Maradiaga 4 Brain Mittal RN RN jb4 Martinez, Maria mh5 Leal, Jahala, RN RN jl7 Laura Kruger RN RN Markel Duran RN RN 1 Amelia Claros Corrections: (The following items were deleted from the chart) 03/15 23:43 23:00 BP 92 / 52; Pulse 101bpm; Resp 14bpm; Pulse Ox 98% RA; jbPatria feng 03/17 08:30 03/16 07:41 BP 122 / 93; Pulse 112bpm; Resp 17bpm; Pulse Ox 98% RA; Temp 98.3F Oral; [id number] 08:30 08:20 BP 116 / 58; Pulse 90bpm; Resp 16bpm; Pulse Ox 98%; Temp 98.1F Oral; 5 mh5 16:13 08:27 BP 110 / 74; Pulse 100bpm; Resp 16bpm; Pulse Ox 100% RA; [facility] mh5
[2021-03-15 22:59] LABS: Barbiturates NEGATIVE (NEGATIVE); Benzodiazepines NEGATIVE (NEGATIVE); Cocaine NEGATIVE (NEGATIVE); METHAMPHETAM POSITIVE (NEGATIVE); Methadone NEGATIVE (NEGATIVE); Opiates NEGATIVE (NEGATIVE); Phencyclidine NEGATIVE (NEGATIVE); THC Cannibis POSITIVE (NEGATIVE)
[2021-03-15 23:48] LABS: Urine Specific Gravity/Preg >1.030 (1.005-1.030)
[2021-03-15 23:57] LABS: SARS-COV-2 RT PCR NEGATIVE (NEGATIVE)
[2021-03-16] MEDS: HEPARIN 5000 UNIT/ML 1 ML VIAL SQ SCH ×3 (01:10→17:00)
[2021-03-16] MEDS ORDERED: ONDANSETRON 4 MG/2 ML VIAL IV PRN (01:10)
[2021-03-16] MEDS ORDERED: ACETAMINOPHEN 500 MG TAB PO PRN (01:10)
[2021-03-16] MEDS ORDERED: NA CHLORIDE 0.9% 500 ML IV PRN (01:10)
[2021-03-16] MEDS: NA CHLORIDE 0.9% 1,000 ML IV SCH ×3 (01:10→21:10)
[2021-03-16 01:31] LABS: Urine Bacteria 20-50 /HPF (<20)
[2021-03-16] MEDS ORDERED: HEPARIN 5000 UNIT/ML 1 ML VIAL ONE (02:30)
[2021-03-16 03:41] VITALS: BMI 30.4
[2021-03-16] MEDS ORDERED: Pharmacy Consult 1 EA XX PRN (03:51)
--- NOTE | 2021-03-16 03:54 | P.HP ---
Certification for Inpatient Patient admitted to: Inpatient With expected LOS: >2 Midnights Patient will require the following post-hospital care: Other Practitioner: I am a practitioner with admitting privileges, knowledge of patient current condition, hospital course, and medical plan of care. Services: Services provided to patient in accordance with Admission requirements found in Title 42 Section 412.3 of the Code of Federal Regulations <Jony Barrios - Last Filed: 03/16/21 03:49> Patient History Date of Service: 03/16/21 Reason for admission: UTI, IMELDA, methamphetamines History of Present Illness: Ms. Ward is a 35 yo F brought in by police from intermediate for increased agitation and aggressiveness. She is unable to give a history. Not endorsing any pain. WBC 21. Cr 1.45, GFR 41, Glu 163, Lactate 3.8. Urine with trace ketones, 1+ blood, trace leukocyte esterase, 3+ protein. Urine positive for amphetamines and THC. - Past Medical/Surgical History Past Medical History: Unable to obtain Past Surgical History: Unable to obtain - Social History Smoking Status: Unknown if ever smoked <Jony Barrios - Last Filed: 03/16/21 03:49> Date of Service: 03/16/21 <Yvette Cohen - Last Filed: 04/04/21 02:56> Allergies codeine Adverse Reaction (Verified 03/16/21 01:09) Anaphylaxis hydrocodone [From Vicodin] Adverse Reaction (Verified 03/16/21 01:09) Anaphylaxis Home Medications: Cefdinir [Omnicef] 300 mg PO BID #14 capsule 03/17/21 Divalproex Sodium [Depakote] 500 mg PO BID #60 tablet. 03/17/21 Risperidone [Risperdal] 0.5 mg PO BID #60 tablet 03/17/21 Temazepam [Restoril*] 15 mg PO BEDTIME PRN PRN #10 cap 03/17/21 Review of Systems is unable to be obtained <Jony Barrios - Last Filed: 03/16/21 03:49> Physical Examination - Physical Exam General: Unresponsive HEENT: Atraumatic, Normocephalic, PERRLA, Mucous membr. moist/pink, EOMI, Sclerae nonicteric Neck: Supple, 2+ carotid pulse no bruit, JVD not distended, No Thyromegaly, No LAD Respiratory: Clear to auscultation bilaterally, Normal air movement Cardiovascular: No edema, Normal pulses, Regular rate/rhythm, Normal S1 S2, No gallops, No rubs, No murmurs Capillary refill: <2 Seconds Gastrointestinal: Normal bowel sounds, Soft and benign, Non-distended, No ascites, No tenderness, No masses, No rebound, No guarding Musculoskeletal: No clubbing, No swelling, No contractures, No erythema, No tenderness, No warmth Integumentary: No rashes, No breakdown, No significant lesion, No tenderness/swelling, No erythema, No warmth, No cyanosis Neurological: Normal strength at 5/5 x4 extr, Normal tone, Sensation intact, Abnormal speech, Abnormal affect Lymphatics: No axilla or inguinal lymphadenopathy - Studies Laboratory Data (last 24 hrs) 03/15/21 20:37: PT 12.5, INR 1.09, APTT 27.3 03/15/21 20:37: WBC 21.10 H*, Hgb 13.2, Hct 39.3, Plt Count 487 H 03/15/21 20:37: Sodium 140, Potassium 4.2, BUN 7, Creatinine 1.45 H, Glucose 163 H, Magnesium 1.8, Total Bilirubin 0.4, AST 35, ALT 30, Alkaline Phosphatase 68, Lipase 105 <Jony Barrios - Last Filed: 03/16/21 03:49> Assessment and Plan - Problems (Diagnosis) (1) UTI (urinary tract infection) Status: Acute Qualifiers: Urinary tract infection type: site unspecified Hematuria presence: with hematuria Qualified Code(s): N39.0 - Urinary tract infection, site not specified; R31.9 - Hematuria, unspecified (2) IMELDA (acute kidney injury) Status: Acute (3) Methamphetamine abuse Status: Acute (4) Sepsis Status: Acute Qualifiers: Sepsis type: sepsis due to unspecified organism Sepsis acute organ dysfunction status: with acute organ dysfunction Severe sepsis acute organ dysfunction type: acute renal failure Acute renal failure type: unspecified Severe sepsis shock status: without septic shock Qualified Code(s): A41.9 - Sepsis, unspecified organism; R65.20 - Severe sepsis without septic shock; N17.9 - Acute kidney failure, unspecified - Plan continue with IVF and broad spectrum antibiotics will continue to monitor BP, bolus 500cc PRN for MAP <60 blood culture, urine culture pending patient sedated in the ED for aggression, currently stable, will continue to monitor, ativan PRN for agitation CK pending, A1c pending Discharge Plan: Home Plan to discharge in: 48 Hours - Advance Directives Does patient have a Living Will: No Does patient have a Durable POA for Healthcare: No - Code Status/Comfort Care Code Status Assessed: Yes (full code) Critical Care: No Time Spent Managing Pts Care (In Minutes): 70 <Jony Barrios - Last Filed: 03/16/21 03:49> Date of Service: 03/16/21 Subjective: Patient with paranoid schizophrenia. Patient is having delusional thoughts. Will try her on some antipsychotics and we will vocational rehabilitation counselor [facility] to evaluate the patient. Physical Examination Vitals: Afebrile vital signs are stable Physical exam: Awake alert oriented x3 Cardiovascular: Regular rate rhythm no murmur Lungs: Clear bilaterally Neuro: No focal deficits Psych: Paranoid delusions Diagnostic data has been reviewed ASST: 1. Paranoid schizophrenia PLAN: 1. Continue with current plan of care 2. Continue with antipsychotic 3. Inpatient psychiatry <Yvette Cohen - Last Filed: 04/04/21 02:56>
[2021-03-16] MEDS ORDERED: VANCOMYCIN 2.25 GM in NA CHLORIDE 0.9% 500 ML IVPB ONE (04:30)
[2021-03-16] MEDS ORDERED: NA CHLORIDE 0.9% 500 ML ONE (05:23)
[2021-03-16] MEDS ORDERED: VANCOMYCIN 1 GM/VIAL ONE (05:23)
[2021-03-16 05:38] LABS: Absolute Lymphocytes (CBC) 3.8 K/uL (0.7-4.9); Basophils % 0.7 % (0-1.3); Hematocrit 32.5 % (36.0-45.0); Lymphocytes % 24.7 % (15.3-44.8); MPV 8.6 fL (7.6-11.3); RBC Red Blood Cell Count 3.41 M/uL (3.86-4.86)
[2021-03-16] MEDS ORDERED: FUROSEMIDE 100 MG/10 ML VIAL IV ONE (06:22)
[2021-03-16 06:41] LABS: ALT/SGPT 22 U/L (12-78); AST/SGOT 31 U/L (15-37); Albumin 2.7 g/dL (3.4-5.0); Alkaline Phosphatase 46 U/L (45-117); BUN Blood Urea Nitrogen 6 mg/dL (7-18); Bicarbonate 23 mmol/L (21-32); Bilirubin Total 0.2 mg/dL (0.2-1.0); Glucose Level 94 mg/dL (74-106); Potassium 3.7 mmol/L (3.5-5.1); Protein, Total 5.7 g/dL (6.4-8.2); Sodium Level 142 mmol/L (136-145); Thyroid Stimulating Hormone 0.736 uIU/mL (0.360-3.740)
[2021-03-16 06:48] LABS: Creatine Phosphokinase 1218 U/L (26-192)
[2021-03-16] MEDS: INSULIN -REGULAR HUMAN 50 UNIT/0.5 ML ML SQ SCH ×4 (07:30→21:00)
--- NOTE | 2021-03-16 07:50 | RAD REPORT ---
EXAM DESCRIPTION: RAD - Chest Single View - 03/15/2021 9:32 pm CLINICAL HISTORY: COUGH COMPARISON: None TECHNIQUE: AP portable chest image was obtained 03/15/2021 9:32 pmin supine positioning . FINDINGS: No peripheral mass or consolidation. Low lung volume accentuates the perihilar lung patter n potentially masking viral infiltrate or edema. Trachea is midline. Heart and vasculature are normal . No measurable pleural effusion and no pneumothorax. No acute bony abnormality seen. No acute aortic findings suspected. IMPRESSION: Shallow inspiration exam with no acute cardiopulmonary findings. Exam limitations could potentially mask mild interstitial edema or infiltrate.
--- NOTE | 2021-03-16 08:42 | EKG ---
Test Date: 2021-03-15 Test Time: 21:38:11 Choir Singer: JORGE MEASUREMENT RESULTS: Intervals: Rate: 110 IN: 152 QRSD: 74 QT: 348 QTc: 470 [place]: P: 59 IN: 152 QRS: 27 T: 40 INTERPRETIVE STATEMENTS: Sinus tachycardia Otherwise normal ECG Compared to ECG 10/19/2020 10:06:15 Sinus rhythm no longer present Myocardial infarct finding no longer present Electronically Signed On 03-16-21 08:41:15 CDT by Peter Stauffer
[2021-03-16] MEDS ORDERED: POTASSIUM CL SA 10 MEQ TAB PO ONE ×2 (09:00→10:20)
--- NOTE | 2021-03-16 11:23 | RAD REPORT ---
EXAM DESCRIPTION: CT - Head Brain Wo Cont - 03/16/2021 7:10 am [facility]: CT HEAD WITHOUT IV CONTRAST CLINICAL HISTORY: MENTAL STATUS CHANGE. TECHNIQUE: Axial, coronal, and sagittal images through the brain were performed in the absence of in travenous contrast. This exam was performed according to our departmental dose-optimization program w hich includes use of Automated Exposure Control, adjustment of the mA and/or kV according to patient size and/or use of iterative reconstruction technique. COMPARISON: None. FINDINGS: The brain parenchyma appears unremarkable. There is no intra-axial or extra-axial bleed se en. There is no mass or mass effect. The ventricles are normal in size shape and configuration. The o rbital contents appear unremarkable. The visualized paranasal sinuses and mastoid air cells are patent. No fracture is identified. IMPRESSION: No acute intracranial abnormality identified. Electronically signed by: Minerva Bean MD 03/15/2021 10:07 PM CDT Due to temporary technical issues with the PACS/Fluency reporting system, reports are being signed by the in house radiologists without review as a courtesy to insure prompt reporting. The interpreting radiologist is fully responsible for the content of the report.
[2021-03-16] MEDS: LORazepam 2 MG/ML VIAL IV PRN ×2 (14:11→19:59)
[2021-03-16] MEDS ORDERED: LORazepam 2 MG/ML VIAL ONE ×2 (14:27→20:12)
[2021-03-16] MEDS ORDERED: ONDANSETRON 4 MG/2 ML VIAL ONE (16:27)
[2021-03-16] MEDS ORDERED: VANCOMYCIN 1.5 GM in NA CHLORIDE 0.9% 500 ML IVPB SCH (18:00)
[2021-03-16] MEDS ORDERED: TEMAZEPAM 15 MG CAP PO PRN (20:51)
[2021-03-16] MEDS ORDERED: CEFTRIAXONE 1 GM/NS 50 ML 1 GM/50 ML BAG IV SCH (21:00)
[2021-03-16] MEDS: NICOTINE 14 MG/PAT TD SCH (21:00)
[2021-03-16] MEDS ORDERED: NICOTINE 14 MG/PAT TD ONE (21:07)
[2021-03-16] MEDS ORDERED: TEMAZEPAM 15 MG CAP ONE (21:23)
[2021-03-16] MEDS ORDERED: CEFTRIAXONE 1000 MG/VIAL ONE (21:23)
[2021-03-16] MEDS ORDERED: NA CHLORIDE 0.9% 50 ML ONE (21:23)
[2021-03-16] MEDS: CEFTRIAXONE/SWI 1gm 1 GM/10 ML SYR IVP SCH (21:30)
[2021-03-17] MEDS: HEPARIN 5000 UNIT/ML 1 ML VIAL SQ SCH ×3 (01:00→17:35)
[2021-03-17] MEDS: LORazepam 2 MG/ML VIAL IV PRN (01:33)
[2021-03-17] MEDS ORDERED: HEPARIN 5000 UNIT/ML 1 ML VIAL ONE ×4 (01:40→23:40)
[2021-03-17] MEDS ORDERED: LORazepam 2 MG/ML VIAL ONE (01:41)
[2021-03-17] MEDS ORDERED: VANCOMYCIN 1.75 GM in NA CHLORIDE 0.9% 500 ML IVPB SCH (05:00)
[2021-03-17] MEDS: NA CHLORIDE 0.9% 1,000 ML IV SCH (07:10)
[2021-03-17 07:13] LABS: Absolute Lymphocytes (CBC) 3.7 K/uL (0.7-4.9); Basophils % 1.8 % (0-1.3); Hematocrit 34.6 % (36.0-45.0); Lymphocytes % 38.2 % (15.3-44.8); RBC Red Blood Cell Count 3.65 M/uL (3.86-4.86)
[2021-03-17 07:27] LABS: ALT/SGPT 32 U/L (12-78); AST/SGOT 51 U/L (15-37); Albumin 3.2 g/dL (3.4-5.0); Alkaline Phosphatase 55 U/L (45-117); BUN Blood Urea Nitrogen 5 mg/dL (7-18); Bicarbonate 27 mmol/L (21-32); Bilirubin Total 0.4 mg/dL (0.2-1.0); Glucose Level 87 mg/dL (74-106); Magnesium 2.2 mg/dL (1.8-2.4); Phosphorus 3.4 mg/dL (2.5-4.9); Potassium 3.7 mmol/L (3.5-5.1); Protein, Total 6.6 g/dL (6.4-8.2); Sodium Level 141 mmol/L (136-145)
[2021-03-17] MEDS: INSULIN -REGULAR HUMAN 50 UNIT/0.5 ML ML SQ SCH ×4 (07:30→20:40)
[2021-03-17] MEDS ORDERED: HALOPERIDOL LACT 5 MG/ML INJ ONE ×2 (12:50→17:36)
[2021-03-17] MEDS ORDERED: HALOPERIDOL LACT 5 MG/ML INJ IV ONE ×2 (12:50→16:00)
[2021-03-17] MEDS ORDERED: VALPROATE SODIUM INJ 500 MG in NA CHLORIDE 0.9% 100 ML IV SCH (16:00)
[2021-03-17] MEDS: VALPROATE SODIUM INJ 500 MG in NA CHLORIDE 0.9% 100 ML IV SCH (17:15)
[2021-03-17] MEDS: RISPERIDONE 1 MG TABLET PO SCH ×3 (17:18→20:41)
[2021-03-17] MEDS ORDERED: HALOPERIDOL LACT 5 MG/ML INJ IV PRN (20:00)
[2021-03-17] MEDS ORDERED: CEFTRIAXONE/SWI 1gm 1 GM/10 ML SYR ONE (20:24)
[2021-03-17] MEDS: NICOTINE 14 MG/PAT TD SCH (20:40)
[2021-03-17] MEDS: CEFTRIAXONE/SWI 1gm 1 GM/10 ML SYR IVP SCH (20:41)
[2021-03-18] MEDS: HEPARIN 5000 UNIT/ML 1 ML VIAL SQ SCH (00:19)
[2021-03-18] MEDS: VALPROATE SODIUM INJ 500 MG in NA CHLORIDE 0.9% 100 ML IV SCH ×2 (00:33→09:00)
[2021-03-18 05:08] VITALS: BP 97/63
[2021-03-18 06:37] LABS: BUN Blood Urea Nitrogen 10 mg/dL (7-18); Bicarbonate 27 mmol/L (21-32); Glucose Level 84 mg/dL (74-106); Potassium 3.8 mmol/L (3.5-5.1); Sodium Level 140 mmol/L (136-145)
[2021-03-18] MEDS: RISPERIDONE 1 MG TABLET PO SCH (09:00)
[2021-03-18 10:19] VITALS: TEMP 97
[2021-03-18 10:47] VITALS: O2SAT 95
--- NOTE | 2021-04-04 02:48 | P.DS ---
Discharge Date: 03/18/21 Disposition: TRANSFR TO OTHER-PSY/CD/REHAB Discharge Condition: GOOD Reason for Admission: UTI, IMELDA, methamphetamines Brief History of Present Illness: Ms. Ward is a 35 yo F brought in by police from intermediate for increased agitation and aggressiveness. She is unable to give a history. WBC 21. Cr 1.45, GFR 41, Glu 163, Lactate 3.8. Urine with trace ketones, 1+ blood, trace leukocyte esterase, 3+ protein. Urine positive for amphetamines and THC. Hospital Course: Patient is hearing voices. Patient is having delusional thoughts. Patient is acutely paranoid schizophrenic. We made arrangements for inpatient psychiatry. Patient had [facility] evaluate her. Patient stable for transfer to inpatient psych. Vital Signs/Physical Exam: Temp Pulse Resp BP Pulse Ox 97 F 89 15 97/63 95 03/18/21 08:00 03/18/21 08:00 03/18/21 08:00 03/18/21 04:00 03/18/21 08:00 General: Alert, In no apparent distress, Oriented x3 Laboratory Data at Discharge: WBC 9.60 K/uL (4.3-10.9) D 03/17/21 06:30 Hgb 11.5 g/dL (12.0-15.0) L 03/17/21 06:30 Hct 34.6 % (36.0-45.0) L 03/17/21 06:30 Plt Count 336 K/uL (152-406) 03/17/21 06:30 PT 12.5 SECONDS (9.5-12.5) 03/15/21 20:37 INR 1.09 03/15/21 20:37 APTT 27.3 SECONDS (24.3-36.9) 03/15/21 20:37 Sodium 140 mmol/L (136-145) 03/18/21 06:09 Potassium 3.8 mmol/L (3.5-5.1) 03/18/21 06:09 BUN 10 mg/dL (7-18) 03/18/21 06:09 Creatinine 0.71 mg/dL (0.55-1.3) 03/18/21 06:09 Glucose 84 mg/dL (74-106) 03/18/21 06:09 Phosphorus 3.4 mg/dL (2.5-4.9) 03/17/21 06:30 Magnesium 2.2 mg/dL (1.8-2.4) 03/17/21 06:30 Total Bilirubin 0.4 mg/dL (0.2-1.0) 03/17/21 06:30 AST 51 U/L (15-37) H 03/17/21 06:30 ALT 32 U/L (12-78) 03/17/21 06:30 Alkaline Phosphatase 55 U/L (45-117) 03/17/21 06:30 Lipase 105 U/L (73-393) 03/15/21 20:37 Home Medications: Cefdinir [Omnicef] 300 mg PO BID #14 capsule 03/17/21 Divalproex Sodium [Depakote] 500 mg PO BID #60 tablet. 03/17/21 Risperidone [Risperdal] 0.5 mg PO BID #60 tablet 03/17/21 Temazepam [Restoril*] 15 mg PO BEDTIME PRN PRN #10 cap 03/17/21 New Medications: Divalproex Sodium [Depakote] 500 mg PO BID #60 tablet. Cefdinir [Omnicef] 300 mg PO BID #14 capsule Temazepam [Restoril*] 15 mg PO BEDTIME PRN PRN #10 cap PRN Reason: Insomnia Risperidone [Risperdal] 0.5 mg PO BID #60 tablet Physician Discharge Instructions: OK TO DC IV AND DC HOME FOLLOW-UP WITH PRIMARY CARE PROVIDER IN 1-2 WEEKS FOLLOW-UP WITH Psychiatry as an outpatient RETURN TO THE ER IF symptoms worsen CALL or TEXT DR. SULLIVAN AT [phone] IF ANY QUESTIONS REGARDING HOSPITAL STAY. PLEASE CALL THE FLOOR AT [phone] IF ANY MEDICATION OR NURSING QUESTIONS. Diet: Regular Activity: Fall precautions Followup: [facility] [Outside] Unknown,U [Primary Care Provider] - Time spent managing pt's care (in minutes): 35
--- NOTE | 2021-04-04 03:02 | P.PN ---
Date of Service: 03/17/21 Subjective: Patient continues to have paranoid thoughts. Awaiting for transfer to inpatient psych Physical Examination Vitals: Afebrile vital signs are stable Physical exam: Awake alert oriented x3 Cardiovascular: Regular rate rhythm no murmur Lungs: Clear bilaterally Neuro: No focal deficits Psych: Paranoid delusions Diagnostic data has been reviewed ASST: 1. Paranoid schizophrenia PLAN: Continue with current plan of care as mentioned below 1. Continue with current plan of care 2. Continue with antipsychotic 3. Inpatient psychiatry
== END 2021-03-18 11:24 | DRG 872 ==
LOC: ER 20:29 → ERHOLD 03-16 00:40
PROVIDERS: ADMIT Hospitalist; ATTEND Hospitalist
DX: A41.9 Sepsis, unspecified organism (principal); N39.0 Urinary tract infection, site not specified; N17.9 Acute kidney failure, unspecified; R65.20 Severe sepsis without septic shock; R31.9 Hematuria, unspecified; F15.10 Other stimulant abuse, uncomplicated; Z88.5 Allergy status to narcotic agent; Z79.899 Other long term (current) drug therapy; Z20.822 Contact with and (suspected) exposure to COVID-19
CPT/HCPCS: 0240U; 36415; 51702; 70450; 71045; 80048; 80053; 80076; 80202; 80307; 80320; 80329; 81003; 81015; 81025; 82550; 82947; 83036; 83605; 83690; 83735; 83880; 84100; 84439; 84443; 84484; 85025; 85610; 85730; 87040; 87086; 87088; 87205; 93005; 94760; 96372; 99285; J0696; J1630; J1644; J2405; J3370; J3411; J3486; J7030; J7040

== ENCOUNTER 2021-03-24 20:58 | Emergency (ER) | payer SELFPAY ==
[2021-03-24 21:48] LABS: Absolute Lymphocytes (CBC) 2.6 K/uL (0.7-4.9); Basophils % 0.4 % (0-1.3); Lymphocytes % 18.1 % (15.3-44.8); MPV 8.6 fL (7.6-11.3); RBC Red Blood Cell Count 4.45 M/uL (3.86-4.86)
[2021-03-24] MEDS ORDERED: NA CHLORIDE 0.9% 1,000 ML ONE (22:01)
[2021-03-24] MEDS ORDERED: LORazepam 2 MG/ML VIAL ONE (22:01)
[2021-03-24 22:03] LABS: Protime INR 0.94
[2021-03-24 22:18] LABS: ALT/SGPT 35 U/L (12-78); Albumin 4.1 g/dL (3.4-5.0); Alkaline Phosphatase 70 U/L (45-117); BUN Blood Urea Nitrogen 9 mg/dL (7-18); Bicarbonate 24 mmol/L (21-32); Bilirubin Direct < 0.1 mg/dL (0-0.2); Bilirubin Total 0.3 mg/dL (0.2-1.0); Glucose Level 104 mg/dL (74-106); Protein, Total 8.4 g/dL (6.4-8.2); Sodium Level 139 mmol/L (136-145)
[2021-03-24 22:19] LABS: AST/SGOT 20 U/L (15-37); Potassium 4.2 mmol/L (3.5-5.1)
[2021-03-24 23:34] LABS: Urine Blood 1+ (Negative); Urine Glucose Negative (Negative); Urine Protein 2+ (Negative); Urine Specific Gravity >=1.030 (1.005-1.030); Urine pH 5.5 (5.0-7.0)
[2021-03-24 23:45] LABS: Urine Specific Gravity/Preg >1.030 (1.005-1.030)
[2021-03-24 23:54] LABS: Barbiturates NEGATIVE (NEGATIVE); Benzodiazepines NEGATIVE (NEGATIVE); Cocaine POSITIVE (NEGATIVE); METHAMPHETAM POSITIVE (NEGATIVE); Methadone NEGATIVE (NEGATIVE); Opiates NEGATIVE (NEGATIVE); Phencyclidine NEGATIVE (NEGATIVE); THC Cannibis POSITIVE (NEGATIVE)
[2021-03-25 00:11] LABS: Urine Bacteria >50 /HPF (<20)
[2021-03-25 00:12] LABS: Urine Mucus 2+ /HPF (NONE SEEN); Urine Trichomonas PRESENT (NONE SEEN)
--- NOTE | 2021-03-25 07:51 | EKG ---
Test Date: 2021-03-24 Test Time: 21:31:40 Linen Room Custodian: JORGE MEASUREMENT RESULTS: Intervals: Rate: 112 NH: 134 QRSD: 66 QT: 328 QTc: 447 [place]: P: 57 NH: 134 QRS: 24 T: 56 INTERPRETIVE STATEMENTS: Sinus tachycardia Otherwise normal ECG Compared to ECG 03/15/2021 21:38:11 No significant changes Electronically Signed On 03-25-21 07:51:28 CDT by Peter Stauffer
[2021-03-25] MEDS ORDERED: NICOTINE 21 MG/PAT TD ONE (09:29)
--- NOTE | 2021-03-25 16:41 | EDPHYS ---
Physician Documentation [facility] Name: Sherry White Age: 36 yrs Sex: Female : 1985 Arrival Date: 03/24/2021 Time: 21:00 Bed External Waiting Private MD: ED Physician Sathish Allison HPI: 03/24 21:24 This 36 yrs old Female presents to ER via Law Enforcement with complaints of mh7 Psych Problem. 21:24 The patient presents to the emergency department with paranoia, psychosis, has mh7 experienced auditory hallucinations, Someone trying to harm her, has experienced visual hallucinations, a history of substance abuse, Type: methamphetamines, marijuana. Onset: The symptoms/episode began/occurred today. Past psychiatric history: Prior diagnosis: no previous psychiatric diagnosis known, Psychiatric medications include: none, Primary psychiatric physician: the patient does not have a primary psychiatric physician, the patient has not had a prior suicide gesture, the patient does not have a previous inpatient psychiatric history. 22:40 Associated signs and symptoms: Pertinent negatives: abdominal pain, anxiety, chest mh7 pain, chills, delusions, depression, fever, headache, homicidal ideation, nausea, night sweats, palpitations, shortness of breath, suicide ideation, tremor, vomiting. Severity of symptoms: At their worst the symptoms were moderate today, in the emergency department the symptoms are unchanged. 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 - Social history:: Smoking status: unknown. ROS: 22:40 Constitutional: Negative for fever, chills, and weight loss, Eyes: Negative for injury, mh7 pain, redness, and discharge, ENT: Negative for injury, pain, and discharge, Neck: Negative for injury, pain, and swelling, Cardiovascular: Negative for chest pain, palpitations, and edema, Respiratory: Negative for shortness of breath, cough, wheezing, and pleuritic chest pain, Abdomen/GI: Negative for abdominal pain, nausea, vomiting, diarrhea, and constipation, Back: Negative for injury and pain, : Negative for injury, bleeding, discharge, and swelling, MS/Extremity: Negative for injury and deformity, Skin: Negative for injury, rash, and discoloration, Neuro: Negative for headache, weakness, numbness, tingling, and seizure, Allergy/Immunology: Negative for hives, rash, and allergies, Endocrine: Negative for neck swelling, polydipsia, polyuria, polyphagia, and marked weight changes, Hematologic/Lymphatic: Negative for swollen nodes, abnormal bleeding, and unusual bruising. Exam: 22:40 Head/Face: Normocephalic, atraumatic. Eyes: Pupils equal round and reactive to light, mh7 extra-ocular motions intact. Lids and lashes normal. Conjunctiva and sclera are non-icteric and not injected. Cornea within normal limits. Periorbital areas with no swelling, redness, or edema. Neck: Trachea midline, no thyromegaly or masses palpated, and no cervical lymphadenopathy. Supple, full range of motion without nuchal rigidity, or vertebral point tenderness. No Meningismus. Chest/axilla: Normal chest wall appearance and motion. Nontender with no deformity. No lesions are appreciated. 22:40 Respiratory: Lungs have equal breath sounds bilaterally, clear to auscultation and percussion. No rales, rhonchi or wheezes noted. No increased work of breathing, no retractions or nasal flaring. Abdomen/GI: Soft, non-tender, with normal bowel sounds. No distension or tympany. No guarding or rebound. No evidence of tenderness throughout. Back: No spinal tenderness. No costovertebral tenderness. Full range of motion. Skin: Warm, dry with normal turgor. Normal color with no rashes, no lesions, and no evidence of cellulitis. MS/ Extremity: Pulses equal, no cyanosis. Neurovascular intact. Full, normal range of motion. Neuro: Awake and alert, GCS 15, oriented to person, place, time, and situation. Cranial nerves II-XII grossly intact. Motor strength 5/5 in all extremities. Sensory grossly intact. Cerebellar exam normal. Normal gait. 22:40 Constitutional: The patient appears in no acute distress, alert, awake, anxious. 22:40 Cardiovascular: Rate: tachycardic, Rhythm: regular, Pulses: no pulse deficits are appreciated, Heart sounds: normal, normal S1and S2, Edema: is not appreciated, JVD: is not appreciated. 22:40 Psych: Behavior/mood is anxious, Affect is animated, Oriented to person, place, time, Patient has no thoughts/intents to harm self or others. Judgement / Insight is impaired. Memory is normal. Delusions/hallucinations are present and described as Hearing voices telling her that someone is trying to kill her. Seeing someone with a gun.. Vital Signs: 21:01 BP 140 / 94; Pulse 125; Resp 18 S; Temp 99.5; Pulse Ox 100% on R/A; Weight 80.74 kg; ad5 Height 5 ft. 9 in. (175.26 cm); Pain 0/10; 03/25 00:52 BP 104 / 59; Pulse 97; Resp 18; Pulse Ox 99% on R/A; wh 07:15 BP 126 / 76; Pulse 88; Resp 15; Temp 97.2; Pulse Ox 100% on R/A; Pain 0/10; hb 03/24 21:01 Body Mass Index 26.29 (80.74 kg, 175.26 cm) ad5 MDM: 08:36 Data reviewed: vital signs, nurses notes. ED course: The patient is resting comfortably kdr in the ED and not requiring any intervention. 10:59 ED course: The patient has eloped and the police have been called as there is an CHIKIS on kdr the chart. The patient is not reported to be suicidal or homicidal but is paranoid. 16:40 Patient medically screened. kdr 16:41 ED course: The patient requested her clothes from security who complied and then once kdr in her possession, kept attempting to leave whenever the nurses/sitter were distracted. 16:41 ED course: Police were called and were attempting to locate the patient. kdr 03/24 21:05 Order name: Acetaminophen; Complete Time: : 03/24 21:05 Order name: Basic Metabolic Panel; Complete Time: : 03/24 21:05 Order name: CBC with Diff; Complete Time: : 03/24 21:05 Order name: ETOH Level; Complete Time: : 03/24 21:05 Order name: Hepatic Function; Complete Time: : 03/24 21:05 Order name: PT-INR; Complete Time: : 03/24 21:05 Order name: Ptt, Activated; Complete Time: : 03/24 21:05 Order name: Salicylate; Complete Time: : 03/24 21:05 Order name: Urine Drug Screen; Complete Time: 04:03 03/24 21:17 Order name: CPK; Complete Time: 23:27 [facility] 03/24 21:53 Order name: SARS-COV-2 RT PCR; Complete Time: 22:19 [facility] 03/24 23:34 Order name: Urine Dipstick-Ancillary; Complete Time: 04:03 [facility] 03/24 23:39 Order name: Urine Microscopic Only; Complete Time: 04:03 [facility] 03/24 21:05 Order name: EKG; Complete Time: 21:05 03/24 21:05 Order name: EKG - Nurse/Tech; Complete Time: 21:39 03/24 21:05 Order name: IV Saline Lock; Complete Time: 21:39 03/24 21:05 Order name: Labs collected and sent; Complete Time: 21:39 03/24 21:05 Order name: Suicide Screening ([place]); Complete Time: 22:11 03/24 21:05 Order name: Urine Dipstick-Ancillary (obtain specimen); Complete Time: 23:38 03/24 21:14 Order name: Urine Test (obtain specimen); Complete Time: 23:38 [facility] 03/24 23:40 Order name: Urine --Ancillary (enter results) [facility] 03/24 23:41 Order name: Urine --Ancillary; Complete Time: 04:03 [facility] 03/25 00:13 Order name: Urine Culture [facility] 03/25 07:06 Order name: Diet Regular; Complete Time: 07:07 eb Administered Medications: 03/24 21:50 Drug: NS 0.9% 1000 ml Route: IV; Rate: 1000 ml; Site: right forearm; 21:52 Drug: Ativan (LORazepam) 1 mg Route: IVP; Site: right forearm; 03/25 09:12 Drug: Nicoderm CQ 21 mg/24 hr 21 mg Route: Transdermal; Site: affected area; Disposition: 03/25/21 16:40 Patient left the facility after being seen by provider. Preliminary diagnosis is Paranoid personality disorder. - Patient left due to wait time. - Condition is Stable. - Problem is an acute exacerbation. - Symptoms are unchanged. Signatures: Dispatcher [employer] [facility] Sathish Allison MD MD kdr Becka Esquivel RN RN Laura Kruger RN RN Major Negron MD MD [facility] Delmer Barber [facility] Corrections: (The following items were deleted from the chart) 03/24 21:12 21:05 CORONAVIRUS+BRZ ordered. EDMS EDMS 03/25 16:49 16:40 03/25/2021 16:40 Patient left the facility after being seen by provider. hb Preliminary diagnosis is Paranoid personality disorder. Reason stated they are leaving due to wait time. Condition is Stable. Problem is an acute exacerbation. Symptoms are unchanged. kdr
--- NOTE | 2021-03-25 16:41 | ER ---
Nurse's Notes [facility] Name: Sherry Whtie Age: 36 yrs Sex: Female : 1985 Arrival Date: 03/24/2021 Time: 21:00 Bed External Waiting Private MD: Diagnosis: Paranoid personality disorder Presentation: 03/24 21:01 Chief complaint: Patient states: Pt BIB PD as ED Hold. PD reports pt found in unknown ad5 person's apt where pt did not live. Brought to ED for eval/tx. Pt denies SI/HI, fearful and requesting PD to remain in room with pt. Pt awake and alert, appears anxious, paranoid delusions noted. Coronavirus screen: Client denies travel out of the [place] in the last 14 days. At this time, the client does not indicate any symptoms associated with coronavirus-19. Ebola Screen: Patient negative for fever greater than or equal to 101.5 degrees Fahrenheit, and additional compatible Ebola Virus Disease symptoms Patient denies exposure to infectious person. Patient denies travel to an Ebola-affected area in the 21 days before illness onset. No symptoms or risks identified at this time. Initial Sepsis Screen: Does the patient meet any 2 criteria? HR > 90 bpm. Does the patient have a suspected source of infection? No. Patient's initial sepsis screen is negative. Risk Assessment: Do you want to hurt yourself or someone else? Patient reports no desire to harm self or others. Onset of symptoms was March 24, 2021. 21:01 Method Of Arrival: Law Enforcement: [place] [employer] ad5 21:01 Acuity: ROXY 3 ad5 03/25 07:02 Acuity: ROXY 2 hb Triage Assessment: 03/24 21:07 General: Appears unkempt, Behavior is cooperative, anxious, restless. 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 - Social history:: Smoking status: unknown. Screenin:30 Abuse screen: Denies threats or abuse. Denies injuries from another. Nutritional wh screening: No deficits noted. Tuberculosis screening: No symptoms or risk factors identified. Fall Risk None identified. Assessment: 21:15 General: Appears in no apparent distress. Behavior is anxious. Pain: Denies pain. wh Neuro: Level of Consciousness is awake, alert, obeys commands, Oriented to person, place. Cardiovascular: Capillary refill < 3 seconds. Respiratory: Airway is patent Respiratory effort is even, unlabored, Respiratory pattern is regular, symmetrical. GI: Abdomen is flat, non-distended. : No signs and/or symptoms were reported regarding the genitourinary system. EENT: No signs and/or symptoms were reported regarding the EENT system. Derm: Skin is intact, is healthy with good turgor, Skin is pink, warm \\T\\ dry. normal. Musculoskeletal: Circulation, motion, and sensation intact. 03/25 00:00 Reassessment: Patient appears in no apparent distress at this time. Pt sleeping well no signs of distress noted, [facility] 02:30 Reassessment: Patient appears in no apparent distress at this time. Pt sleeping well no signs of distress noted, [facility]. 05:00 Reassessment: Patient appears in no apparent distress at this time. Pt talking to [facility] for assessment. 07:15 Reassessment: Patient appears in no apparent distress at this time. Patient and/or hb family updated on plan of care and expected duration. Pain level reassessed. 07:42 Reassessment: Pt repeatedly coming out of room asking for her clothiers, explained to patient she needs to remain in gown and redirected back to the room. 08:31 Reassessment: Pt continues to attempt to roam hallway, requires frequent redirection. Dr. Allison and charge nurse Sherrie HUMMEL aware. 08:53 Reassessment: Patient appears in no apparent distress at this time. No changes from previously documented assessment. Patient and/or family updated on plan of care and expected duration. Pain level reassessed. 09:30 Reassessment: Patient appears in no apparent distress at this time. Patient and/or hb family updated on plan of care and expected duration. Pain level reassessed. 10:18 Reassessment: Pt found in hallway after returning from security office where she hb obtained her clothing. Now in clothing and shoes with sunglasses on head. Redirected back to room. Dr. Allison notified. No new orders at this time. 10:56 Reassessment: Pt eloped. [employer] called. hb Psych: 03/24 21:30 [place] Suicide Severity Screening: In the past month, have you wished you were wh or wished you could go to sleep and not wake up? Patient responds "No." "In the past month, have you actually had any thoughts of killing yourself?" Patient responds "no." "In your lifetime, have you ever done anything, started to do anything, or prepared to do anything to end your life?" Patient responds "no.". Subjective: Delusions are persecutory, Hallucinations are visual. Objective: Patient is guarded, Speech is normal, Affect is flat. Interventions: Removed personal items and placed in bag. Patient placed in hospital gown. Searched person for dangerous items. Belonging list filled out. Safety Checks: Personal items have been removed. Door is open. No visitors are present at this time. Pt denies substance abuse. Commitment: Patient will be an involuntary commitment. Vital Signs: 21:01 BP 140 / 94; Pulse 125; Resp 18 S; Temp 99.5; Pulse Ox 100% on R/A; Weight 80.74 kg; ad5 Height 5 ft. 9 in. (175.26 cm); Pain 0/10; 03/25 00:52 BP 104 / 59; Pulse 97; Resp 18; Pulse Ox 99% on R/A; wh 07:15 BP 126 / 76; Pulse 88; Resp 15; Temp 97.2; Pulse Ox 100% on R/A; Pain 0/10; hb 03/24 21:01 Body Mass Index 26.29 (80.74 kg, 175.26 cm) ad5 ED Course: 03/24 21:00 Patient arrived in ED. cf2 21:01 Major Negron MD is Attending Physician. mh7 21:04 Triage completed. ad5 21:07 Laura Kruger, ESTEPHANIE is Primary Nurse. wh 21:08 Arm band placed on. ad5 21:30 Patient has correct armband on for positive identification. Placed in gown. Bed in low wh position. Side rails up X 1. Sitter at bedside. 23:30 Straight cath inserted, using sterile technique, 18 Fr. Specimen obtained. Returned ds4 cloudy urine. Patient tolerated well. 03/25 00:09 called [facility] Crisis Line [phone] spoke to Marysol to have a screener evaluate mw2 the patient. 00:35 Herberth from [facility] tried to do a screening with the patient, but was unable to get mw2 information out of patient due to the patient falling asleep. 05:07 called [facility] Crisis Line [phone] spoke to Arielle to have a screener evaluate mw2 the patient. 05:59 faxed patient clinicals to all available psych facilities. mw2 06:51 [facility] called to decline the patient due to being at capacity. eb 07:22 Attending Physician role handed off by Major Negron MD kdr 07:22 Sathish Allison MD is Attending Physician. kdr 09:12 Tiffanie from the [facility] called to see if we have found placement yet/ She eb says she will call [facility] and see if she can get her placed there. 09:42 Urine --Ancillary (enter results) Sent. hb Administered Medications: 03/24 21:50 Drug: NS 0.9% 1000 ml Route: IV; Rate: 1000 ml; Site: right forearm; 21:52 Drug: Ativan (LORazepam) 1 mg Route: IVP; Site: right forearm; 03/25 09:12 Drug: Nicoderm CQ 21 mg/24 hr 21 mg Route: Transdermal; Site: affected area; Outcome: 16:49 Patient left the ED. Signatures: Sathish Allison MD MD [facility] ds4 Becka Esquivel RN RN Laura Kruger RN RN Pih Flower mw2 Rachael Barton Bruna Tay cf2 Major Negron MD MD 7 Delmer Barber ad5 Corrections: (The following items were deleted from the chart) 03/24 21:07 21:01 Chief complaint: Patient states: Pt BIB PD as ED Hold. PD reports pt found in ad5 unknown person's apt where pt did not live. Brought to ED for eval/tx. Pt denies SI/HI, fearful and requesting PD to remain in room with pt. ad5
[2021-03-25 16:58] VITALS: BP 126/76; TEMP 97.2; O2SAT 100
== END 2021-03-25 16:49 | disposition left against medical advice (07) ==
LOC: ER 20:58
DX: F60.0 Paranoid personality disorder (principal); Z20.822 Contact with and (suspected) exposure to COVID-19; Z88.5 Allergy status to narcotic agent
CPT/HCPCS: 36415; 51702; 80048; 80076; 80307; 80320; 80329; 81003; 81015; 81025; 82550; 85025; 85610; 85730; 87086; 87088; 93005; 96374; 99284; J7030; U0003

== ENCOUNTER 2022-01-05 15:27 | Emergency (ER) | payer SELFPAY ==
--- OUTSIDE RECORDS SUMMARY | 2022-01-05 15:30 | XMS REPORT | Continuity of Care Document ---
:1985 Author Organization [facility] t Address [address] [place] [address] Care Team Providers Name Role Phone Unavailable Unavailable Unavailable Problems This patient has no known problems. Allergies, Adverse Reactions, Alerts Allergy Allergy Status Severity Reaction(s) Onset Inactive Treating Comm ents Source Name Type Date Date Clinician CODEINE DRUG Active ITCHING 0 [employer] INGR[facility]I 05-12 ity of 00:00: [address] Medications This patient has no known medications. Procedures This patient has no known procedures. Encounters Start End Encounter Admission Attending Care Care Encounter Source Date/Time Date/Time Type Type Clinicians Facility Department ID 2021-04-08 2021-04-08 Emergency X [facility] ERT [id number] [facility] 12:40:00 12:40:00 ity of [facility] 2018-07-02 2018-07-04 [facility] [id number] [place] 00:00:00 00:00:00 [facility] 2018-04-11 2018-04-11 Out[facility] [id number] 00:00:00 00:00:00 [facility] Results This patient has no known results.
--- NOTE | 2022-01-05 16:26 | RAD REPORT ---
EXAM DESCRIPTION: RAD - Hand Right 3 View - 01/05/2022 4:19 pm CLINICAL HISTORY: PAIN COMPARISON: No comparisons FINDINGS/IMPRESSION: No acute fracture. No malalignment. No significant focal degenerative changes.
--- NOTE | 2022-01-05 16:26 | RAD REPORT ---
EXAM DESCRIPTION: RAD - Forearm Right - 01/05/2022 4:19 pm CLINICAL HISTORY: PAIN COMPARISON: No comparisons FINDINGS: No acute fracture. No malalignment. No significant focal degenerative changes. IMPRESSION: No acute osseous abnormality involving the right forearm.
--- NOTE | 2022-01-05 16:28 | RAD REPORT ---
EXAM DESCRIPTION: RAD - Humerus Right - 01/05/2022 4:19 pm CLINICAL HISTORY: PAIN COMPARISON: No comparisons FINDINGS/IMPRESSION: No acute fracture. No malalignment. No significant focal degenerative changes.
--- NOTE | 2022-01-05 16:37 | ER ---
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 "I think my ld1 right arm is broken and I want to get it casted so that I stop using it.". Coronavirus screen: At this time, the client does not indicate any symptoms associated with coronavirus-19. Ebola Screen: No symptoms or risks identified at this time. Initial Sepsis Screen: Does the patient meet any 2 criteria? No. Patient's initial sepsis screen is negative. Does the patient have a suspected source of infection? No. Patient's initial sepsis screen is negative. Risk Assessment: Do you want to hurt yourself or someone else? Patient reports no desire to harm self or others. Onset of symptoms was January 05, 2022. 15:41 Method Of Arrival: Ambulatory ld1 15:41 Acuity: ROXY 4 ld1 Triage Assessment: 15:42 General: Appears in no apparent distress. comfortable, Behavior is cooperative, ld1 anxious. Pain: Complains of pain in right hand and right arm Pain does not radiate. Pain currently is 6 out of 10 on a pain scale. Neuro: Level of Consciousness is awake, alert, obeys commands, Oriented to person, place, time, situation, Appropriate for age. Cardiovascular: Capillary refill < 3 seconds Patient's skin is warm and dry. Respiratory: Airway is patent Respiratory effort is even, unlabored. Derm:. Musculoskeletal: Circulation, motion, and sensation intact. Capillary refill < 3 seconds, in bilateral fingers. Injury Description: possible broken arm - denies injury. FAMILY PARTNER: 15:42 LMP 12/12/2021 ld1 Historical: - Allergies: 15:42 Codeine; ld1 15:42 Vicodin; ld1 - Home Meds: 15:42 None [Active]; ld1 - PSHx: 15:42 None; ld1 - Immunization history:: Adult Immunizations up to date, Client reports receiving the 2nd dose of the Covid vaccine. - Social history:: Smoking status: Reported history of juuling and/or vaping. Patient/guardian denies using alcohol. Screenin:53 Abuse screen: Denies threats or abuse. Nutritional screening: No deficits noted. ss7 Tuberculosis screening: No symptoms or risk factors identified. Fall Risk None identified. Assessment: 15:53 General: Appears in no apparent distress. Behavior is calm. Pain: Complains of pain in ss7 right arm and right hand. 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 Cardiovascular: Heart tones S1 S2. Respiratory: Breath sounds are clear bilaterally. GI: No deficits noted. : No deficits noted. EENT: No deficits noted. Derm: No deficits noted. Musculoskeletal: Reports pain in right hand and right arm. Vital Signs: 15:41 BP 131 / 88; Pulse 113; Resp 20; Temp 98.6(TE); Pulse Ox 98% on R/A; Weight 83.01 kg; ld1 Height 5 ft. 7 in. (170.18 cm); Pain 6/10; 16:46 BP 134 / 74; Pulse 97; Resp 18; Pulse Ox 100% on R/A; ss7 15:41 Body Mass Index 28.66 (83.01 kg, 170.18 cm) ld1 ED Course: 15:33 Patient arrived in ED. kz 15:40 Modseto Hutton DO is Attending Physician. ms3 15:42 Triage completed. ld1 15:42 Arm band placed on left wrist. ld1 15:49 Sherry York FNP-C is [facility]. kb 15:53 Juanita Kaplan, ESTEPHANIE is Primary Nurse. ss7 15:53 Patient has correct armband on for positive identification. ss7 15:53 No provider procedures requiring assistance completed. ss7 16:18 Forearm Right XRAY In Process Unspecified. EDMS 16:18 Humerus Right XRAY In Process Unspecified. EDMS 16:18 Hand Right 3 View XRAY In Process Unspecified. EDMS 16:40 Patient did not have IV access during this emergency room visit. ss7 Administered Medications: No medications were administered Outcome: 16:36 Discharge ordered by . kb 16:39 Discharged to home ambulatory. ss7 16:39 Condition: good 16:39 Discharge instructions given to patient. 16:46 Patient left the ED. ss7 Signatures: Dispatcher [employer] EDMS Sherry York, GILL ALDRIDGE-Modesto Melgoza DO DO ms3 Kathy Alegria, RN RN ld1 Juanita Kaplan RN RN ss7 Nara Bee
--- NOTE | 2022-01-05 16:37 | EDPHYS ---
Physician Documentation [facility] Name: Sherry White Age: 36 yrs Sex: Female : 1985 Arrival Date: 01/05/2022 Time: 15:33 Bed 12 Private MD: ED Physician Modesto Hutton HPI: 01/05 16:51 This 36 yrs old Female presents to ER via Ambulatory with complaints of Arm Injury - kb Thinks right arm may be broken. 16:51 The patient or guardian complains of decreased range of motion, pain. The complaints kb affect the right hand, right upper arm and right forearm. 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 Onset: The symptoms/episode began/occurred started a couple of weeks ago became worse 3 days ago. Treatment prior to arrival includes: no previous treatment. Modifying factors: The symptoms are alleviated by nothing. the symptoms are aggravated by nothing. Associated signs and symptoms: Pertinent positives: decreased range of motion, pain. Severity of symptoms: At their worst the symptoms were moderate, in the emergency department the symptoms are unchanged. The patient has not experienced similar symptoms in the past. The patient has not recently seen a physician. Pt reports right arm pain that has been getting worse and she believes she has a fracture. 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 - Social history:: Smoking status: Reported history of juuling and/or vaping. Patient/guardian denies using alcohol. ROS: 16:51 Constitutional: Negative for fever, chills, and weight loss. kb 16:51 MS/extremity: Positive for decreased range of motion, pain, of the right arm. 16:51 All other systems are negative. Exam: 16:51 Constitutional: This is a well developed, well nourished patient who is awake, alert, kb and in no acute distress. Head/Face: Normocephalic, atraumatic. ENT: Moist Mucous membranes Cardiovascular: Regular rate and rhythm with a normal S1 and S2. No gallops, murmurs, or rubs. No pulse deficits. Respiratory: Respirations even and unlabored. No increased work of breathing. Talking in full sentences Skin: Warm, dry with normal turgor. Normal color. Neuro: Awake and alert, GCS 15, oriented to person, place, time, and situation. Moves all extremities. Normal gait. Psych: Awake, alert, with orientation to person, place and time. Behavior, mood, and affect are within normal limits. 16:51 Musculoskeletal/extremity: Extremities: grossly normal except: noted in the right arm: decreased ROM, pain, ROM: limited active range of motion due to pain, in the right arm, Circulation is intact in all extremities. Sensation intact. Vital Signs: 15:41 BP 131 / 88; Pulse 113; Resp 20; Temp 98.6(TE); Pulse Ox 98% on R/A; Weight 83.01 kg; ld1 Height 5 ft. 7 in. (170.18 cm); Pain 6/10; 16:46 BP 134 / 74; Pulse 97; Resp 18; Pulse Ox 100% on R/A; ss7 15:41 Body Mass Index 28.66 (83.01 kg, 170.18 cm) ld1 MDM: 15:49 Patient medically screened. kb 16:35 Data reviewed: vital signs, nurses notes. Data interpreted: Pulse oximetry: on room air kb is 98 %. Interpretation: normal. Counseling: I had a detailed discussion with the patient and/or guardian regarding: the historical points, exam findings, and any diagnostic results supporting the discharge/admit diagnosis, radiology results, the need for outpatient follow up, a orthopedic surgeon, to return to the emergency department if symptoms worsen or persist or if there are any questions or concerns that arise at home. 01/05 15:52 Order name: Forearm Right XRAY; Complete Time: 16:26 kb 01/05 15:52 Order name: Humerus Right XRAY; Complete Time: 16:35 kb 01/05 15:52 Order name: Hand Right 3 View XRAY; Complete Time: 16:28 kb Administered Medications: No medications were administered Disposition: 20:26 Co-signature as Attending Physician, Modesto Hutton DO I agree with the assessment and ms3 plan of care. Disposition Summary: 03/10/22 16:36 Discharge Ordered Location: Home kb Condition: Stable kb Diagnosis - Pain in right arm kb Followup: kb - With: Emergency Department - When: As needed - Reason: Worsening of condition Followup: kb - With: Private Physician - When: 2 - 3 days - Reason: Recheck today's complaints, Continuance of care, Re-evaluation by your physician Discharge Instructions: - Discharge Summary Sheet kb - Musculoskeletal Pain kb Forms: - Medication Reconciliation Form kb - Thank You Letter kb - Antibiotic Education kb - Prescription Opioid Use kb - Work release form ss7 Signatures: Dispatcher [employer] EDMS Sherry York, HOG SLAUGHTERER-C HOG SLAUGHTERER-Modesto Melgoza DO DO ms3 Kathy Alegria, RN RN ld1
[2022-01-05 17:59] VITALS: TEMP 98.6
[2022-01-05 18:00] VITALS: BP 134/74; O2SAT 100
== END 2022-01-05 16:46 | disposition home or self-care (01) ==
LOC: ER 15:27
DX: M79.601 Pain in right arm (principal); Z88.5 Allergy status to narcotic agent
CPT/HCPCS: 99283

== ENCOUNTER 2022-11-16 17:48 | Emergency (ER) | payer SELFPAY ==
[2022-11-16] MEDS ORDERED: ONDANSETRON 4 MG/2 ML VIAL ONE (18:10)
[2022-11-16] MEDS ORDERED: KETOROLAC 30 MG/ML INJ ONE (18:10)
[2022-11-16 18:51] LABS: SARS-COV-2 RT PCR NEGATIVE (NEGATIVE)
--- NOTE | 2022-11-16 18:57 | ER ---
Nurse's Notes [facility] Name: Sherry White Age: 37 yrs Sex: Female : 1985 Arrival Date: 11/16/2022 Time: 17:53 Bed 12 Private MD: Diagnosis: Acute upper respiratory infection, unspecified Presentation: 11/16 17:56 Chief complaint: Patient states: nausea, body aches, vomiting, pain, for past two days, iw +fever. Coronavirus screen: Client presents with at least one sign or symptom that may indicate coronavirus-19. Ebola Screen: Patient negative for fever greater than or equal to 101.5 degrees Fahrenheit, and additional compatible Ebola Virus Disease symptoms Patient denies exposure to infectious person. Patient denies travel to an Ebola-affected area in the 21 days before illness onset. No symptoms or risks identified at this time. Initial Sepsis Screen: Does the patient meet any 2 criteria? No. Patient's initial sepsis screen is negative. Does the patient have a suspected source of infection? No. Patient's initial sepsis screen is negative. Risk Assessment: Do you want to hurt yourself or someone else? Patient reports no desire to harm self or others. Onset of symptoms was November 13, 2022. 17:56 Method Of Arrival: Ambulatory iw 17:56 Acuity: ROXY 4 iw [employer]PER[employer]OR [employer]: 17:57 LMP 11/09/2022 iw Historical: - Allergies: 17:57 Codeine; iw 17:57 Vicodin; iw - PMHx: 17:57 PTSD; Anxiety; Depressive disorder; iw - PSHx: 17:57 None; iw - Immunization history:: Client reports receiving the 2nd dose of the Covid vaccine. - Social history:: Smoking status: Reported history of juuling and/or vaping. Screenin:59 Abuse screen: Denies threats or abuse. Nutritional screening: No deficits noted. ll1 Tuberculosis screening: No symptoms or risk factors identified. 17:59 [facility] ED Fall Risk Assessment (Adult) Score/Fall Risk Level 0 - 2 = Low Risk ll1 Oriented to surroundings, Maintained a safe environment, Educated pt \T\ family on fall prevention, incl call for assistance when getting out of bed, Hourly rounding (assess needs \T\ fall precautionary measures) done. Assessment: 18:10 General: Appears uncomfortable, ill, Behavior is calm, cooperative, appropriate for ll1 age. Pain: Complains of pain in generalized Quality of pain is described as aching. Neuro: Reports headache. Cardiovascular: No deficits noted. Respiratory: Reports. GI: Reports nausea, vomiting. EENT: Reports nasal congestion. Musculoskeletal: Reports pain in body aches. 18:20 Reassessment: No changes from previously documented assessment. Patient and/or family ll1 updated on plan of care and expected duration. Pain level reassessed. Patient is alert, oriented x 3, equal unlabored respirations, skin warm/dry/pink. 19:00 Reassessment: No changes from previously documented assessment. Patient and/or family ll1 updated on plan of care and expected duration. Pain level reassessed. Patient is alert, oriented x 3, equal unlabored respirations, skin warm/dry/pink. Vital Signs: 17:56 BP 118 / 70; Pulse 93; Resp 16; Temp 98.3; Pulse Ox 100% on R/A; Weight 74.84 kg; iw Height 5 ft. 7 in. (170.18 cm); 17:56 Body Mass Index 25.84 (74.84 kg, 170.18 cm) iw ED Course: 17:53 Patient arrived in ED. rg4 17:53 Lorie Veliz [facility]-C is [facility]. sb4 17:53 Sathish Allison MD is Attending Physician. sb4 17:57 Triage completed. iw 17:57 Arm band placed on. iw 17:59 Markel Duran, ESTEPHANIE is Primary Nurse. ll1 17:59 Patient placed in an exam room, on a stretcher. ll1 17:59 Patient has correct armband on for positive identification. Bed in low position. Call ll1 light in reach. Cardiac monitoring not applicable on this patient. 18:03 COVID-19/FLU A+B Sent. ll1 18:05 COVID-19/FLU A+B Sent. ll1 19:00 No provider procedures requiring assistance completed. Patient did not have IV access ll1 during this emergency room visit. Administered Medications: 18:19 Drug: Ketorolac 30 mg Route: IM; Site: left gluteus; ll1 19:00 Follow up: Response: No adverse reaction; Pain is decreased ll1 18:19 Drug: Zofran (ondansetron) 4 mg Route: IM; Site: right gluteus; 1 19:00 Follow up: Response: No adverse reaction ll1 Medication: 17:59 VIS not applicable for this client. 1 Outcome: 18:57 Discharge ordered by . sb4 19:00 Patient left the ED. 1 19:00 Discharged to home ambulatory. [facility] 19:00 Condition: stable 19:00 Discharge instructions given to patient, Instructed on discharge instructions, follow up and referral plans. Demonstrated understanding of instructions, follow-up care, medications, Prescriptions given X 2. Signatures: Siena Devi, RN Niki Denise rg4 Markel Duran RN RN ll1 Lorie Veliz, PA-C PA-C sb4
--- NOTE | 2022-11-16 18:58 | EDPHYS ---
Physician Documentation [facility] Name: Sherry White Age: 37 yrs Sex: Female : 1985 Arrival Date: 11/16/2022 Time: 17:53 Bed 12 Private MD: ED Physician Sathish Allison HPI: 11/16 18:03 This 37 yrs old Female presents to ER via Ambulatory with complaints of Flu Symptoms. sb4 18:03 Onset: The symptoms/episode began/occurred 3 day(s) ago. Associated signs and symptoms: sb4 Pertinent positives: abdominal pain, chest pain, congestion, cough, fever, headache, vomiting, Pertinent negatives: diarrhea, dysuria, shortness of breath, wheezing. Modifying factors: The patient symptoms are alleviated by nothing. Patient reports that she was in the rain about 3 days ago and has been feeling ill since. States she has headache, abdominal pain, nausea, vomiting, body aches, subjective fever. She has tried ibuprofen inconsistently without any relief in symptoms. She denies any sick contacts. . 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 - Social history:: Smoking status: Reported history of juuling and/or vaping. ROS: 18:03 Eyes: Negative for injury, pain, redness, and discharge, ENT: Negative for injury, sb4 pain, and discharge, MS/Extremity: Negative for injury and deformity. 18:03 Constitutional: Positive for body aches, fatigue, fever, malaise, poor PO intake. 18:03 ENT: 18:03 Cardiovascular: Positive for chest pain. 18:03 Respiratory: Positive for cough, Negative for shortness of breath, sputum production, wheezing. 18:03 Abdomen/GI: Positive for abdominal pain, nausea, vomiting, Negative for diarrhea, constipation. Exam: 18:03 Eyes: Pupils equal round and reactive to light, extra-ocular motions intact. sb4 Periorbital areas with no swelling, redness, or edema. Cardiovascular: Regular rate and rhythm with a normal S1 and S2. Respiratory: Lungs have equal breath sounds bilaterally, clear to auscultation and percussion. No rales, rhonchi or wheezes noted. No increased work of breathing, no retractions or nasal flaring. Abdomen/GI: Soft, non-tender, no distension. Skin: Warm, dry with normal turgor. Normal color with no rashes, no lesions, and no evidence of cellulitis. MS/ Extremity: Pulses equal, no cyanosis. Neurovascular intact. Full, normal range of motion. 18:03 Constitutional: The patient appears alert, awake, uncomfortable. 18:03 ENT: dry mucous membranes. Vital Signs: 17:56 BP 118 / 70; Pulse 93; Resp 16; Temp 98.3; Pulse Ox 100% on R/A; Weight 74.84 kg; iw Height 5 ft. 7 in. (170.18 cm); 17:56 Body Mass Index 25.84 (74.84 kg, 170.18 cm) iw MDM: 18:03 Patient medically screened. sb4 18:03 Differential diagnosis: viral Infection, URI, bronchitis, gastroenteritis, Influenza, sb4 COVID-19. 18:59 Data reviewed: vital signs, nurses notes, lab test result(s), and as a result, I will sb4 discharge patient. 11/16 17:58 Order name: COVID-19/FLU A+B; Complete Time: 18:54 sb4 Administered Medications: 18:19 Drug: Ketorolac 30 mg Route: IM; Site: left gluteus; ll1 19:00 Follow up: Response: No adverse reaction; Pain is decreased ll1 18:19 Drug: Zofran (ondansetron) 4 mg Route: IM; Site: right gluteus; ll1 19:00 Follow up: Response: No adverse reaction ll1 Disposition: 19:16 Co-signature as Attending Physician, Sathish Allison MD I agree with the assessment and kdr plan of care. Disposition Summary: 11/16/22 18:57 Discharge Ordered Location: Home sb4 Problem: new sb4 Symptoms: have improved sb4 Condition: Stable sb4 Diagnosis - Acute upper respiratory infection, unspecified sb4 Followup: sb4 - With: Private Physician - When: As needed - Reason: Recheck today's complaints, Re-evaluation by your physician Discharge Instructions: - Discharge Summary Sheet sb4 - Form - Return To Work sb4 Forms: - Medication Reconciliation Form sb4 - Work release form ss - Thank You Letter sb4 - Antibiotic Education sb4 - Prescription Opioid Use sb4 Prescriptions: - Zofran 4 mg Oral Tablet - take 1 tablet by ORAL route every 6 hours As needed; 20 tablet; Refills: 0, sb4 Product Selection Permitted - Medrol (Maykel) 4 mg Oral Tablets, Dose Pack - take 1 tablet by ORAL route as directed - follow package instructions; 1 sb4 packet; Refills: 0, Product Selection Permitted Signatures: Dispatcher [employer] Sathish Diallo MD MD kdr Williams, Irene RN RN Markel Viveros RN RN llLorie Givens, CYNTHIA MARIE sb4
[2022-11-16 19:34] VITALS: BP 118/70; TEMP 98.3; O2SAT 100
== END 2022-11-16 19:00 | disposition home or self-care (01) ==
LOC: ER 17:48
DX: J06.9 Acute upper respiratory infection, unspecified (principal); F41.9 Anxiety disorder, unspecified; F32.A Depression, unspecified; F43.10 Post-traumatic stress disorder, unspecified; Z20.822 Contact with and (suspected) exposure to COVID-19; Z88.6 Allergy status to analgesic agent
CPT/HCPCS: 0240U; J2405

== ENCOUNTER 2022-11-18 22:54 | Emergency (ER) | payer SELFPAY ==
[2022-11-18 23:45] LABS: Urine Blood 3+ (Negative); Urine Glucose Negative (Negative); Urine Protein 3+ (Negative); Urine Specific Gravity 1.025 (1.005-1.030)
[2022-11-18] MEDS ORDERED: HYDROCODONE/APAP 5/325 MG TAB ONE (23:52)
[2022-11-19 00:24] LABS: Urine Specific Gravity/Preg 1.025 (1.005-1.030)
[2022-11-19] MEDS ORDERED: ACETAMINOPHEN 325 MG TABLET ONE (00:34)
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
[2022-11-19 04:39] VITALS: BP 125/83; TEMP 99; O2SAT 100
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
== END 2022-11-19 02:02 | disposition home or self-care (01) ==
LOC: ER 22:54
DX: Z04.71 Encounter for examination and observation following alleged adult physical abuse (principal); S00.83XA Contusion of other part of head, initial encounter; M79.601 Pain in right arm
CPT/HCPCS: 70450; 70486; 71045; 72125; 76377; 81003; 81025; 99284